=== PATIENT | female | born 1935 | race African-American/Black ===

== ENCOUNTER 2017-07-16 17:12 | Inpatient (IN) | payer OTHER ==
--- NOTE | 2017-07-16 18:06 | PDOC ---
History of Present Illness - General Chief Complaint: CVA/TIA Stated Complaint: R/O CVA Time Seen by Provider: 07/16/17 17:38 - History of Present Illness Initial Comments: 07/16/17 22:56 The patient is a 81 year old female, with a significant past medical history of DM, seizure disorder, lymphedema, Cardiomyopathy, HTN, Colon Cancer s/p resection in 2008, renal insufficiency, dementia not on any medications who presents to the emergency department with 4 days of L sided weakness and AMS. As per daughter, patient had an unwitnessed fall out of her bed and landed on the L side of her body, sustaining a L orbital laceration. Since then, the patient has been increasingly weak. Daughter states patient is ambulatory and verbal at baseline however since the fall the patient is unable to stand or sit on her own. Daughter mentions patients seizure history and states her AMS may be due to her absent seizures. Patient has not been on any medications for the past year. Patient was brought into the ED for further evaluation of her deteriorating in mental status since Friday. The patient's daughter reports that the patient and her made a decision 1+ year ago to no longer take medications or see the doctor. The patients daughter reports that she is the POA. When goals of care are discussed, the patient's daughter states that the patient would want "everything done." Allergies: NKA Past surgical history: Colon resection 2008 Social history: None PCP: Dr. Adilson Almanza NIH Stroke Scale - Last Known Well Date/Time & Onset Date Last Known Well: 07/12/17 Time Last Known Well: 00:00 - Initial Evaluation Level of consciousness: Alert Ask patient the month and their age: Both incorrect Ask patient to open & close eyes; make fist and let go: Both incorrect Best gaze (horizontal eye movement): Partial gaze palsy Visual field testing: No visual field loss Facial paresis (Show teeth/raise eyebrows/close eyes tight): Complete paralysis of one or both sides (Upper and lower face) Motor Function: Left Arm: No movement Motor Function: Right Arm: Normal (extends arm 90 (or 45) degrees for 10 seconds without drift Motor Function: Left Leg: No effort against gravity Motor Function: Right Leg: Normal (extends leg 30 degrees for 5 seconds without drift) Limb Ataxia: Untestable (Joint fused or limb amputated), explain: Sensory(Use pinprick test arms,legs,trunk,face/side to side): Mild to moderate decrease in sensation Best language (Describe picture, name items, read sentences): Severe aphasia Dysarthria (read several words): Near unintelligible or unable to speak Extinction and Inattention: Profound deysi-inattention or extinction to more than one modality - Total Score NIH Stroke Scale Score: 22 Past History - Past Medical History Allergies/Adverse Reactions: Allergies Allergy/AdvReac Type Severity Reaction Status Date / Time No Known Allergies Allergy Verified 07/16/17 17:32 Home Medications: Ambulatory Orders NK [No Known Home Medication] 07/16/17 CVA: No COPD: No DVT: No - Suicide/Smoking/Psychosocial Hx Smoking History: Never smoked Have you smoked in the past 12 months: No Information on smoking cessation initiated: No Hx Alcohol Use: No Drug/Substance Use Hx: No Substance Use Type: None Review of Systems - Review of Systems Comments:: 07/16/17 23:01 GENERAL/CONSTITUTIONAL: No fever or chills. +AMS HEAD, EYES, EARS, NOSE AND THROAT: No change in vision. No ear pain or discharge. No sore throat. CARDIOVASCULAR: No chest pain or shortness of breath. RESPIRATORY: No cough, wheezing, or hemoptysis. GASTROINTESTINAL: No nausea, vomiting, diarrhea or constipation. GENITOURINARY: No dysuria, frequency, or change in urination. MUSCULOSKELETAL: No joint or muscle swelling or pain. No neck or back pain. SKIN: No rash NEUROLOGIC: No headache, vertigo, loss of consciousness, or change in strength/ sensation. ENDOCRINE: No increased thirst. No abnormal weight change. HEMATOLOGIC/LYMPHATIC: No anemia, easy bleeding, or history of blood clots. ALLERGIC/IMMUNOLOGIC: No hives or skin allergy. *Physical Exam - Vital Signs Last Vital Signs Temp Pulse Resp BP Pulse Ox 93.9 F L 78 17 168/63 100 07/16/17 17:32 07/16/17 17:32 07/16/17 17:32 07/16/17 17:32 07/16/17 17:32 - Physical Exam Comments: 07/16/17 23:04 GENERAL: Elderly female with dried blood on her lateral brow, awake HEAD: 3 cm linear laceration over L lateral eyebrow (4 days old). +Ecchymosis to the inferior lateral orbital rim, L cheek, L mandible. EYES: PERRLA, sclera anicteric, conjunctiva clear ENT: Auricles normal inspection, hearing grossly normal, nares patent, oropharynx clear without exudates. +Dry mucous membranes. NECK: Normal ROM, supple, no lymphadenopathy, JVD, or masses LUNGS: Breath sounds equal, clear to auscultation bilaterally. No wheezes, and no crackles HEART: Regular rate and rhythm, normal S1 and S2, no murmurs, rubs or gallops ABDOMEN: Soft, nontender, normoactive bowel sounds. No guarding, no rebound. No masses EXTREMITIES: + b/l symmetric non pitting LE edema NEUROLOGICAL: +L hemineglect +L facial droop. +LUE flaccid. +1/5 strength in LLE. +aphasia ED Treatment Course - LABORATORY CBC & Chemistry Diagram: 07/19/17 04:45 07/19/17 04:45 Medical Decision Making - Critical Care Time Total Critical Care Time (minutes): 60 Critical Care Statement: The care of this patient involved high complexity decision making to prevent further life threatening deterioration of the patient 's condition and/or to evaluate & treat vital organ system(s) failure or risk of failure. - Medical Decision Making 07/16/17 18:18 81-year-old female with multiple medical problems but not on any medications presents with 4 days of left-sided weakness and change in mental status. Vitals are remarkable for hypertension to the 160s systolic and hypothermia to 93. On exam the patient has left deysi-neglect, left-sided facial droop, a flaccid left upper extremity, and 1 out of 5 strength in her left lower extremity. The patient is also aphasic. I am highly concerned for a CVA that is ischemic versus hemorrhagic versus a subdural hematoma given frequent falls per the patient's daughter and main powerhouse tender. Her hypothermia may be a consequence of acute intracranial pathology however will consider infection and check a UA/ CXR. Patient will also need a trauma workup given the frequent falls and the noted ecchymosis on the left face and the left nasal bridge. 07/16/17 20:28 Pt hypernatremic to 170s with multiple strokes on CTH. Pt accepted to ICU for further management *DC/Admit/Observation/Transfer Diagnosis at time of Disposition: CVA (cerebral vascular accident), ARF (acute renal failure), Hypernatremia - Discharge Dispostion Condition at time of disposition: Critical - Referrals - Patient Instructions - Post Discharge Activity
[2017-07-16] MEDS ORDERED: SODIUM CHLORIDE 1,000 ML IV SCH (18:15)
[2017-07-16 18:18] LABS: BASOPHIL 0.8 % (0-2.0); EOSINOPHIL 0.6 % (0-4.5); MCH 21.2 pg (25.7-33.7); MCHC 29.1 g/dl (32.0-36.0); MEAN CELL VOLUME 72.8 fl (80-96); MEAN PLT VOLUME 9.4 fl (7.5-11.1); NEUTROPHILS 84.9 % (42.8-82.8); PLATELET COUNT 252 K/MM3 (134-434); RDW 19.6 % (11.6-15.6); WHITE BLOOD COUNT 9.4 K/mm3 (4.0-10.0)
[2017-07-16 18:33] LABS: INR 1.29 (0.82-1.09); PROTHROMBIN TIME (PATIENT) 14.6 SEC (9.98-11.88)
[2017-07-16 18:53] LABS: MAGNESIUM 3.4 mg/dL (1.8-2.4)
[2017-07-16 18:54] LABS: ALBUMIN 2.9 g/dl (3.4-5.0); ANION GAP 11 (8-16); BILIRUBIN,TOTAL 0.3 mg/dL (0.2-1.0); CALCIUM 8.2 mg/dL (8.5-10.1); CHOLESTEROL 141 mg/dL (50-200); CO2 18 mmol/L (21-32); CREATININE 4.9 mg/dL (0.55-1.02); GLUCOSE,RANDOM 97 mg/dL (74-106); SGOT/AST 48 U/L (15-37); SGPT/ALT 22 U/L (12-78); TOT PROT 9.2 g/dl (6.4-8.2); TROPONIN I 0.07 ng/ml (0.00-0.05)
[2017-07-16 18:55] LABS: ALK PHOS 118 U/L (45-117); CPK 939 IU/L (26-192); TROPONIN I 0.07 ng/ml (0.00-0.05)
[2017-07-16 19:07] LABS: ANISOCYTOSIS 1+; HYPOCHROMIA 3+; MICROCYTOSIS 1+; OVALOCYTE 1+; TARGET CELLS 1+
[2017-07-16 21:07] LABS: URINE APPEARANCE TURBID; URINE BILIRUBIN NEGATIVE (NEGATIVE); URINE BLOOD 2+ (NEGATIVE); URINE COLOR DKYELLOW; URINE GLUCOSE (UA) NEGATIVE (NEGATIVE); URINE KETONE TRACE (NEGATIVE); URINE NITRITE NEGATIVE (NEGATIVE); URINE UROBILINOGEN NEGATIVE mg/dL (0.2-1.0)
[2017-07-16 21:13] LABS: URINE PROTEIN 1+ (NEGATIVE)
[2017-07-16 21:16] LABS: URINE BACTERIA RARE /hpf (NONE SEEN); URINE MUCUS RARE; URINE RBC 78 /hpf (0-3); URINE WBC 285 /hpf (3-5); YEAST MANY
--- NOTE | 2017-07-16 21:52 | PDOC ---
*Physical Exam - Vital Signs Last Vital Signs Temp Pulse Resp BP Pulse Ox 94.6 F L 87 20 152/80 100 07/16/17 18:49 07/16/17 19:49 07/16/17 19:49 07/16/17 19:49 07/16/17 19:49 ED Treatment Course - LABORATORY CBC & Chemistry Diagram: 07/16/17 18:10 07/16/17 18:10 - ADDITIONAL ORDERS Additional order review: Laboratory Results 07/16/17 07/16/17 07/16/17 21:00 18:10 18:10 PT with INR INR Sodium Potassium Chloride Carbon Dioxide Anion Gap BUN Creatinine Creat Clearance w eGFR Random Glucose Calcium Magnesium 3.4 H Total Bilirubin AST ALT Alkaline Phosphatase Creatine Kinase Creatine Kinase Index CK-MB (CK-2) Troponin I 0.07 H Total Protein Albumin Triglycerides Cholesterol Total LDL Cholesterol HDL Cholesterol Urine Color Dkyellow Urine Appearance Turbid Urine pH 5.0 Ur Specific Armstrong 1.017 Urine Protein 1+ H Urine Glucose (UA) Negative Urine Ketones Trace H Urine Blood 2+ H Urine Nitrite Negative Urine Bilirubin Negative Urine Urobilinogen Negative Ur Epithelial Cells Few Urine Bacteria Rare Urine Mucus Rare Urine Yeast Many Blood Type B NEGATIVE Antibody Screen Negative 07/16/17 07/16/17 18:10 18:10 PT with INR 14.60 H INR 1.29 H Sodium 172 H* Potassium 5.3 H Chloride 143 H Carbon Dioxide 18 L Anion Gap 11 BUN 79 H Creatinine 4.9 H Creat Clearance w eGFR 8.48 Random Glucose 97 Calcium 8.2 L Magnesium Total Bilirubin 0.3 AST 48 H ALT 22 Alkaline Phosphatase 118 H Creatine Kinase 939 H Creatine Kinase Index 1.0 CK-MB (CK-2) 9.860 H Troponin I 0.07 H Total Protein 9.2 H Albumin 2.9 L Triglycerides 129 Cholesterol 141 Total LDL Cholesterol 84 HDL Cholesterol 40 Urine Color Urine Appearance Urine pH Ur Specific Armstrong Urine Protein Urine Glucose (UA) Urine Ketones Urine Blood Urine Nitrite Urine Bilirubin Urine Urobilinogen Ur Epithelial Cells Urine Bacteria Urine Mucus Urine Yeast Blood Type Antibody Screen 07/16/17 18:10 RBC 3.15 L MCV 72.8 L MCHC 29.1 L RDW 19.6 H MPV 9.4 Neutrophils % 84.9 H Lymphocytes % 8.1 Monocytes % 5.6 Eosinophils % 0.6 Basophils % 0.8 Medical Decision Making - Medical Decision Making Patient signed out by Dr. Hsu. Labs returned significant for severe hypernatremia at 172 and acute renal failure with a HgB of 6.7. Orderd one pack of RBCs. 07/16/17 22:42 Spoke with the ICU SUPERVISOR [employer] at 22:45 and he was OK with admission. Spoke with Dr. salgado at 22:55 and she was OK with admission to the ICU. Spoke with Dr. Hanson covering for Ashutosh at 23:02 and he didn't see any issue with using hypotonic fluids if needed. He will see the patient in the AM. We changed fluids from D5 to LR because of fear of overcorection since this hypernatremia is primarily volume driven. 07/16/17 23:[address] Alberto at 23:37 and he recommended switching from LR to NS and bolus two liters/ 2 hours, pulmonary status permitting then continuing on 150cc/ hr. He was not concerned about acute overcorrection of her hypernatremia. Will put in one liter and recheck at [facility]. 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
[2017-07-16] MEDS ORDERED: SODIUM CHLORIDE 0.45% 1,000 ML IV SCH (22:00)
[2017-07-16] MEDS ORDERED: DEXTROSE 5%-WATER - 1,000 ML IV SCH (22:15)
[2017-07-16] MEDS ORDERED: LACTATED RINGERS SOLUTION 1,000 ML/1,000 ML INFUS.BAG IV SCH (23:00)
[2017-07-16] MEDS ORDERED: SODIUM CHLORIDE 0.9% 500 ML INFUS.BAG IV ONE (23:33)
--- NOTE | 2017-07-16 23:34 | CONSULT ---
Consult Consult Specialty:: Pulm/CCM Reason for Consultation:: hyperNa, ARF - History of Present Illness Chief Complaint: AMS History of Present Illness: This is a 81 yo woman history MMP: DM, dementia, prior CVA/TIA, seizure d/o, CKD , colon Ca s/p resection (2008) and now multiple recent falls who developed new left side weakness and AMS ~3days prior to admission. Per daughter patient was verbal/ambulatory prior to this last fall when she struck the left side of her head and has been bed bound since. On day of admission the patient's daughter noted left sided facial droop and aphasia. EMS was activated later in the day. In ED hypothermic 93d, labs notable for metabolic disarray: Na 172, Cl: 142, SCr 4.9. CK: 939. CT head and face done: showing multiple infarct of varying age. Patient was not a TPA candidate due to last known normal time >3hrs. Renal and Neurology consulted. - History Source History Provided By: Medical Record Limitations to Obtaining History: Clinical Condition - Past Medical History LOCAL SUPERINTENDENT: Yes: Dementia, Seizure, TIA Cardio/Vascular: Yes: HTN Gastrointestinal: Yes: Cancer (Colon Ca s/p resection (2008)) Renal/: Yes: Renal Inusuff Endocrine: Yes: Diabetes Mellitus - Alcohol/Substance Use Hx Alcohol Use: No - Smoking History Smoking history: Never smoked Have you smoked in the past 12 months: No Home Medications - Allergies Allergies/Adverse Reactions: Allergies Allergy/AdvReac Type Severity Reaction Status Date / Time No Known Allergies Allergy Verified 07/16/17 17:32 - Home Medications Home Medications: Ambulatory Orders NK [No Known Home Medication] 07/16/17 Family Disease History - Family Disease History Family History: Unable to Obtain Review of Systems Unable to obtain ROS, reason: AMS Physical Exam Vital Signs: Vital Signs Temperature 94.6 F L 07/16/17 18:49 Pulse Rate 87 07/16/17 19:49 Respiratory Rate 20 07/16/17 19:49 Blood Pressure 152/80 07/16/17 19:49 O2 Sat by Pulse Oximetry (%) 100 07/16/17 19:49 Constitutional: Yes: Cachectic, Thin Eyes: Yes: PERRL HENT: Yes: Drooling Cardiovascular: Yes: Regular Rate and Rhythm, S1, S2 Respiratory: Yes: CTA Bilaterally Gastrointestinal: Yes: Normal Bowel Sounds, Soft Edema: Yes Edema: LLE: 2+, RLE: 2+ Neurological: Yes: Aphasia, Facial Droop (left side) ...Motor Strength: LUE (flacid), LLE (1/5) Labs: CBC, BMP 07/16/17 18:10 07/16/17 18:10 Imaging - Results Chest X-ray: Report Reviewed, Image Reviewed Cat Scan: Report Reviewed, Image Reviewed (CT head: nonhemorrhagic 2x0.5 R basal ganglia infarct, acute vs sub acute. 2.7x1.5cm L parietal low attenuation focus c/f encephalomalacia or subacute cortical infarct. No mass effect. 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 (3) ARF (acute renal failure) Code(s): N17.9 - ACUTE KIDNEY FAILURE, UNSPECIFIED Qualifiers: Acute renal failure type: unspecified Qualified Code(s): N17.9 - Acute kidney failure, unspecified (4) Dehydration Code(s): E86.0 - DEHYDRATION Assessment/Plan a/p: Frail 81 yo woman w/ MMP: CVA, sz d/o, DM CKD who presented with ~3days of progressive weakness and aphasia after a fall with new left sided weakness likely r/t acute vs subacute CVA c/c/b profound metabolic disarray with hypovolemic hypernatremia r/t severe dehydration likely 2/2 decreased access to water c/b AKF and anemia -cont fluid resuscitation for hypovolemic, will use NS (relatively hypotonic) -free water deficit 5.6L, slow correction with goal 162 in next 24hrs -frequent BMPs -renal lytes, Uosmo -medical management hyperkalemia -renal consulted -renal dose all medication -neurology following -transfuse for Hgb >7.0 -sebastian hugger for hypothermia -will likely need feeding tube, will be cautious for refeeding syndrome -DVT prophylaxis: SCD given questionable CVA/bleed -GI prophylaxis given ARF -GOC: per daughter patient had stopped taking meds and seeing MDs ~1yr ago. Nash PATEL Pulm/CCM CCT: 35m
[2017-07-17] MEDS: FAMOTIDINE 20 MG/50 ML IVPB 20 MG/50 ML MG IVPB SCH (00:25)
[2017-07-17 01:44] LABS: ALBUMIN 2.8 g/dl (3.4-5.0); ANION GAP 11 (8-16); CALCIUM 8.4 mg/dL (8.5-10.1); CO2 20 mmol/L (21-32); CREATININE 5.5 mg/dL (0.55-1.02); GLUCOSE,RANDOM 77 mg/dL (74-106); SGOT/AST 43 U/L (15-37); SGPT/ALT 22 U/L (12-78)
[2017-07-17 01:45] LABS: ALK PHOS 111 U/L (45-117); BILIRUBIN,TOTAL 0.3 mg/dL (0.2-1.0); TOT PROT 8.9 g/dl (6.4-8.2)
[2017-07-17] MEDS ORDERED: SODIUM CHLORIDE 0.45% 1,000 ML IV SCH (02:15)
[2017-07-17 02:34] VITALS: BMI 17.4
[2017-07-17 07:09] LABS: MCH 23.6 pg (25.7-33.7); MCHC 31.1 g/dl (32.0-36.0); MEAN CELL VOLUME 75.7 fl (80-96); MEAN PLT VOLUME 9.2 fl (7.5-11.1); PLATELET COUNT 203 K/MM3 (134-434); RDW 20.8 % (11.6-15.6); WHITE BLOOD COUNT 10.5 K/mm3 (4.0-10.0)
[2017-07-17 07:12] LABS: ANION GAP 11 (8-16); CALCIUM 7.9 mg/dL (8.5-10.1); CO2 19 mmol/L (21-32); GLUCOSE,RANDOM 75 mg/dL (74-106); MAGNESIUM 3.1 mg/dL (1.8-2.4)
[2017-07-17 07:14] LABS: CREATININE 5.5 mg/dL (0.55-1.02); PHOSPHOROUS 6.8 mg/dL (2.5-4.9)
--- NOTE | 2017-07-17 09:33 | CON.NEURO ---
Consult Consult Specialty:: Neurology Referred by:: Dr. Aditi Sanchez Reason for Consultation:: Altered mental status, stroke, undefined brain lesion - History of Present Illness Chief Complaint: Fall, altered mental status History of Present Illness: 81 year old woman with prior history of DMII, dementia, prior stroke, epilepsy, CKD, colon Ca s/p resection (2008) and now multiple recent falls who developed new left side weakness and AMS ~3days prior to admission. As per house staff the acute weakness occurred 3 days prior to admission and then the patient became progressively non-functional, lethargic and hasn't been taking adequate food or drink. - History Source History Provided By: Medical Record Limitations to Obtaining History: Dementia - Past Medical History STEP DOWN SPECIALIST: Yes: CVA, Dementia, Seizure, TIA Cardio/Vascular: Yes: HTN Gastrointestinal: Yes: Cancer (Colon Ca s/p resection (2008)) Renal/: Yes: Renal Inusuff Endocrine: Yes: Diabetes Mellitus - Alcohol/Substance Use Hx Alcohol Use: No - Smoking History Smoking history: Never smoked Have you smoked in the past 12 months: No - Social History Usual Living Arrangement: With Child ADL: Family Assistance Home Medications - Allergies Allergies/Adverse Reactions: Allergies Allergy/AdvReac Type Severity Reaction Status Date / Time No Known Allergies Allergy Verified 07/16/17 17:32 - Home Medications Home Medications: Ambulatory Orders NK [No Known Home Medication] 07/16/17 Physical Exam-Neuro Vital Signs: Vital Signs Temperature 97.2 F L 07/17/17 08:00 Pulse Rate 76 07/17/17 08:00 Respiratory Rate 19 07/17/17 09:00 Blood Pressure 159/53 07/17/17 08:00 O2 Sat by Pulse Oximetry (%) 100 07/17/17 09:00 Constitutional: Yes: Thin, Other (lying in hospital bed wtih O2 cannula in place , head positioned slightly to the right, mouth open, eyes closed, with spontaneous movements at times) Labs: CBC, BMP 07/17/17 06:05 07/17/17 06:05 INR, PTT INR 1.29 (0.82-1.09) H 07/16/17 18:10 - Neuro Exam Level Of Consciousness: Yes: Stuporous Eyes: Yes: [place]OR Speech: Garbled Cranial Nerves II-XII Intact: No DTR's: 0 Left Achilles, 0 Right Achilles, 2+ Left Bicep, 2+ Right Bicep, 2+ Left Tricep, 2+ Right Tricep Babinski: Present (on the left side) Response to light touch: Abnormal (no grimace to noxious stimuli on the left side) NIH Stroke Scale - Last Known Well Date/Time & Onset Date Last Known Well: 07/12/17 - Initial Evaluation Level of consciousness: Not alert, but arousable with minimal stimulation Ask patient the month and their age: Both incorrect Ask patient to open & close eyes; make fist and let go: Obeys one correctly Best gaze (horizontal eye movement): Normal Visual field testing: Partial hemianopia Facial paresis (Show teeth/raise eyebrows/close eyes tight): Minor paralysis ( flattened nasolabial fold, asymmetry on smiling) Motor Function: Left Arm: No effort against gravity Motor Function: Right Arm: Some effort against gravity Motor Function: Left Leg: No movement Motor Function: Right Leg: Some effort against gravity Limb Ataxia: No ataxia Sensory(Use pinprick test arms,legs,trunk,face/side to side): Severe to total sensory loss Best language (Describe picture, name items, read sentences): Mild to moderate aphasia Dysarthria (read several words): Near unintelligible or unable to speak Extinction and Inattention: Inattention or extinction bilaterally to one of the sensory modalities - Total Score NIH Stroke Scale Score: 23 Imaging - Results Cat Scan: Report Reviewed, Image Reviewed (subacute right basal ganglia infarction, old left pontine infarction, left parietal low attenuation focus of undefined nature with some hyperdensity along anterior border. There is a small chronic subdural without mass effect (vs hygroma) on Head CT. 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 Since that time, she has not been able to care for herself, resulting in poor po intake and progression of her symptoms which is likely metabolic in nature. The nature of the lesion in the left parietal lobe is not clear, and when possible, MRI should be obtained to better understand what this represents whether it is encephalomalacea from an old insult or whether it represents a neoplasm. Unfortunately, contrast cannot be given due to her renal status, but the MRI should be able to at least help us distinguish some of these. We need to better understand her history of epilepsy, and whether she has had seizures recently. As per history obtained by another MD, the patient and made the decision to not take medications, which if she had epilepsy, one would think, would result in frequent seizures. If she and her family are willing, she should be on Aspirin, Statin, and possibly and anticonvulsant, but I'd recommend discussing this with the family. Her PCP if available over the next few days should also be able to provide additional medical insight. Thanks for consulting us.
--- NOTE | 2017-07-17 09:41 | CON.NEP ---
Consult Consult Specialty:: Nephrology Referred by:: ED Reason for Consultation:: Hypernatremia, Acute Renal Failure - History of Present Illness Chief Complaint: AMS History of Present Illness: This is a 81 year old woman with PMhx of DM, seizure disorder, lymphedema, Cardiomyopathy, HTN, Colon Cancer s/p resection in 2008, renal insufficiency, dementia who presented with AMS and left sided weakness with Hypernatremia and Acute Renal failure. Pt wass seen and examined in the ICU but not able to provide history. 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 Daughter reports that the patient has not had medical follow up in 1 year and has stopped taking all her meds. Denies any NSAID use. No po intake for the past 4 days as per daughter. Has poor intake for the past few months. Pt is s/p fall. Has left sided weakness. 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: Yes: CVA, Dementia, Seizure, TIA Cardio/Vascular: Yes: HTN Gastrointestinal: Yes: Cancer (Colon Ca s/p resection (2008)) Renal/: Yes: Renal Inusuff Endocrine: Yes: Diabetes Mellitus - Alcohol/Substance Use Hx Alcohol Use: No - Smoking History Smoking history: Never smoked Have you smoked in the past 12 months: No - Social History Usual Living Arrangement: With Child ADL: Family Assistance Home Medications - Allergies Allergies/Adverse Reactions: Allergies Allergy/AdvReac Type Severity Reaction Status Date / Time No Known Allergies Allergy Verified 07/16/17 17:32 - Home Medications Home Medications: Ambulatory Orders NK [No Known Home Medication] 07/16/17 Review of Systems Unable to obtain ROS, reason: pt not verbal Nephrology Consult - Height Height: 5 ft 2 in - Weight Weight: 43.318 kg - BMI Body Mass Index (BMI): 17.4 - Lab Results CBC,BMP: CBC, BMP 07/17/17 06:05 07/17/17 06:05 Anion Gap: Anion Gap Anion Gap 11 (8-16) 07/17/17 06:05 - Imaging Chest X-ray: Report Reviewed Cat Scan: Report Reviewed - Physical Examination Vital Signs: Vital Signs Temperature 97.2 F L 07/17/17 08:00 Pulse Rate 76 07/17/17 08:00 Respiratory Rate 19 07/17/17 09:00 Blood Pressure 159/53 07/17/17 08:00 O2 Sat by Pulse Oximetry (%) 100 07/17/17 09:00 Constitutional: Yes: No Distress, Calm, Cachectic, Other (Dry MM) Neck: Yes: Supple Cardiovascular: Yes: Regular Rate and Rhythm, S1, S2. No: Murmur, Rub Respiratory: Yes: Regular, CTA Bilaterally Gastrointestinal: Yes: Normal Bowel Sounds, Soft. No: Tenderness Renal/: Yes: Anuria, CVA Tenderness - Left, CVA Tenderness - Right, Rowley Present. No: Bladder Distention Extremities: No: Cold, Cool, Cyanosis Edema: No Neurological: Yes: Alert, Oriented Problem List - Problems (1) ARF (acute renal failure) Code(s): N17.9 - ACUTE KIDNEY FAILURE, UNSPECIFIED Qualifiers: Acute renal failure type: unspecified Qualified Code(s): N17.9 - Acute kidney failure, unspecified (2) CVA (cerebral vascular accident) Code(s): I63.9 - CEREBRAL INFARCTION, UNSPECIFIED Qualifiers: CVA mechanism: occlusion Precerebral and cerebral artery: basilar artery Qualified Code(s): I63.22 - Cerebral infarction due to unspecified occlusion or stenosis of basilar artery (3) Dehydration Code(s): E86.0 - DEHYDRATION (4) Hypernatremia Code(s): E87.0 - HYPEROSMOLALITY AND HYPERNATREMIA Assessment/Plan 81 year old woman with PMhx of DM, seizure disorder, lymphedema, Cardiomyopathy , HTN, Colon Cancer s/p resection in 2008, renal insufficiency (Cr 1.85 in 2012) , dementia who presented with AMS and left sided weakness with Hypernatremia and Acute Renal failure. #Acute on chronic renal insufficiency Etiology of DARLENE unclear, volume depletion vs. progressive CKD ? 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 unlikely DI but would need to access urine OSM continue isotonic saline at this time Ternd Labs Q12h #Hyperkalemia Mild, no acute intervention needed (no kayexalate, Insulin needed at this time) continue isotonic saline #AMS/CVA Supportive Care permissive hypertension #Metabolic Acidosis Trend serum Bicarb for now Thank you Will follow up Florentino Alberto DO
[2017-07-17] MEDS ORDERED: SODIUM CHLORIDE 1,000 ML IV SCH (10:30)
[2017-07-17 10:54] LABS: URINE LEUK ESTERASE 3+ (NEGATIVE)
--- NOTE | 2017-07-17 12:31 | HP ---
PCP: Adilson Almanza CHIEF COMPLAINT: Altered mental status HISTORY OF PRESENT ILLNESS: This is an 81-year-old woman who was brought in to the ER yesterday because of altered mental status. The patient is unable to provide a history which is obtained from the chart. Her daughter reported that she has had a change in mental status and left-sided weakness for the last 3 days. She had fallen out of bed onto her left side 3 days ago. Since then, she has been unable to sit or stand. Prior to the fall, she had been ambulatory and verbal. Since the fall, she has had left-sided weakness, left facial droop and worsening confusion. According to her daughter, over a year ago, the patient and her decided to stop all medications and not seek medical care. However, the daughter stated that the patient would want everything done. Head CT showed a 2 x 0.5 cm acute/subacute right basal ganglia infarct, a 2.7 x 1.5 cm left parietal low-attenuation focus possible encephalomalacia or subacute cortical infarct, a small chronic left pontine infarct, a very small chronic left frontal/parietal/temporal subdural hematoma. Her sodium was 172. She was admitted to the ICU overnight. PAST MEDICAL HISTORY: Type 2 DM Seizure disorder Lymphedema HTN Cardiomyopathy Colon cancer PAST SURGICAL HISTORY: Colon resection Allergies No Known Allergies Allergy (Verified 07/16/17 17:32) Home Medications Medication Instructions Recorded NK [No Known Home Medication] 07/16/17 Social History: Smoking: Never smoked Alcohol: None Drugs: None Recent Travel: No Family History: Unobtainable REVIEW OF SYSTEMS Unobtainable PHYSICAL EXAMINATION Vital Signs - 24 hr 07/16/17 07/16/17 07/16/17 17:32 18:49 19:49 Temperature 93.9 F L 94.6 F L Pulse Rate 78 Pulse Rate [ 78 87 Apical] Respiratory 17 18 20 Rate Blood Pressure 168/63 Blood Pressure 152/51 152/80 [Left Arm] O2 Sat by Pulse 100 100 100 Oximetry (%) 07/16/17 07/17/17 07/17/17 22:00 01:00 01:15 Temperature 95.4 F L 97.0 F L 97.0 F L Pulse Rate Pulse Rate [ 71 69 Apical] Respiratory 20 20 Rate Blood Pressure Blood Pressure 161/85 160/79 [Left Arm] O2 Sat by Pulse 95 96 Oximetry (%) 07/17/17 07/17/17 07/17/17 02:00 02:22 03:01 Temperature 96.2 F L 96.2 F L 96.4 F L Pulse Rate 76 76 74 Pulse Rate [ Apical] Respiratory 19 19 17 Rate Blood Pressure 153/56 153/56 153/56 Blood Pressure [Left Arm] O2 Sat by Pulse 100 Oximetry (%) 07/17/17 07/17/17 07/17/17 05:00 05:01 07:00 Temperature 97.3 F L 97.8 F Pulse Rate 74 72 Pulse Rate [ Apical] Respiratory 18 18 19 Rate Blood Pressure 136/47 153/49 Blood Pressure [Left Arm] O2 Sat by Pulse 100 Oximetry (%) 07/17/17 07/17/17 08:00 09:00 Temperature 97.2 F L Pulse Rate 76 Pulse Rate [ Apical] Respiratory 19 19 Rate Blood Pressure 159/53 Blood Pressure [Left Arm] O2 Sat by Pulse 100 Oximetry (%) GENERAL: Comfortable. Cachectic. Opens eyes to painful stimuli. Non-verbal. HEAD: Healing laceration of left side of face, ecchymosis of left side of face. EYES: Pupils equal, round and reactive to light, sclerae anicteric, conjunctivae clear. EARS, NOSE, THROAT: Ears normal, nares patent, oropharynx not able to be examined. NECK: Supple without lymphadenopathy, JVD, or masses. LUNGS: Breath sounds equal, clear to auscultation bilaterally. No wheezes, and no crackles. No accessory muscle use. HEART: Regular rate and rhythm, normal S1 and S2 without murmur, rub or gallop. ABDOMEN: Soft, not distended, normoactive bowel sounds. No hepatomegaly or splenomegaly. UPPER EXTREMITIES: Right arm contracted. LOWER EXTREMITIES: 2+ pulses, warm, well-perfused. 2+ edema with chronic changes of both legs. NEUROLOGICAL: Does not follow commands. Biceps and patella reflexes 2+. Plantar reflex equivocal on right and upgoing on left. SKIN: Warm, dry, poor turgor, no rashes or lesions noted, normal capillary refill. Laboratory Results - last 24 hr 07/16/17 07/16/17 07/16/17 18:10 18:10 18:10 WBC 9.4 RBC 3.15 L Hgb 6.7 L* Hct 23.0 L MCV 72.8 L MCH 21.2 L MCHC 29.1 L RDW 19.6 H Plt Count 252 MPV 9.4 Neutrophils % 84.9 H Lymphocytes % 8.1 Monocytes % 5.6 Eosinophils % 0.6 Basophils % 0.8 Hypochromia 3+ Anisocytosis 1+ Microcytosis 1+ Target Cells 1+ Ovalocytes 1+ PT with INR 14.60 H INR 1.29 H Sodium 172 H* Potassium 5.3 H Chloride 143 H Carbon Dioxide 18 L Anion Gap 11 BUN 79 H Creatinine 4.9 H Creat Clearance w eGFR 8.48 Random Glucose 97 Lactic Acid Calcium 8.2 L Phosphorus Magnesium Total Bilirubin 0.3 AST 48 H ALT 22 Alkaline Phosphatase 118 H Creatine Kinase 939 H Creatine Kinase Index 1.0 CK-MB (CK-2) 9.860 H Troponin I 0.07 H Total Protein 9.2 H Albumin 2.9 L Triglycerides 129 Cholesterol 141 Total LDL Cholesterol 84 HDL Cholesterol 40 TSH Urine Color Urine Appearance Urine pH Ur Specific [place] Urine Protein Urine Glucose (UA) Urine Ketones Urine Blood Urine Nitrite Urine Bilirubin Urine Urobilinogen Ur Leukocyte Esterase Ur Epithelial Cells Urine Bacteria Urine Mucus Urine Yeast Blood Type Antibody Screen Crossmatch 07/16/17 07/16/17 07/16/17 18:10 18:10 21:00 WBC RBC Hgb Hct MCV MCH MCHC RDW Plt Count MPV Neutrophils % Lymphocytes % Monocytes % Eosinophils % Basophils % Hypochromia Anisocytosis Microcytosis Target Cells Ovalocytes PT with INR INR Sodium Potassium Chloride Carbon Dioxide Anion Gap BUN Creatinine Creat Clearance w eGFR Random Glucose Lactic Acid Calcium Phosphorus Magnesium 3.4 H Total Bilirubin AST ALT Alkaline Phosphatase Creatine Kinase Creatine Kinase Index CK-MB (CK-2) Troponin I 0.07 H Total Protein Albumin Triglycerides Cholesterol Total LDL Cholesterol HDL Cholesterol TSH Urine Color Dkyellow Urine Appearance Turbid Urine pH 5.0 Ur Specific [place] 1.017 Urine Protein 1+ H Urine Glucose (UA) Negative Urine Ketones Trace H Urine Blood 2+ H Urine Nitrite Negative Urine Bilirubin Negative Urine Urobilinogen Negative Ur Leukocyte Esterase 3+ H Ur Epithelial Cells Few Urine Bacteria Rare Urine Mucus Rare Urine Yeast Many Blood Type B NEGATIVE Antibody Screen Negative Crossmatch See Detail 07/17/17 07/17/17 07/17/17 01:00 01:00 01:00 WBC RBC Hgb Hct MCV MCH MCHC RDW Plt Count MPV Neutrophils % Lymphocytes % Monocytes % Eosinophils % Basophils % Hypochromia Anisocytosis Microcytosis Target Cells Ovalocytes PT with INR INR Sodium 175 H* Potassium 5.3 H Chloride 144 H Carbon Dioxide 20 L Anion Gap 11 BUN 89 H Creatinine 5.5 H Creat Clearance w eGFR 7.42 Random Glucose 77 D Lactic Acid 1.4 Calcium 8.4 L Phosphorus Magnesium Total Bilirubin 0.3 AST 43 H ALT 22 Alkaline Phosphatase 111 Creatine Kinase Creatine Kinase Index CK-MB (CK-2) Troponin I Total Protein 8.9 H Albumin 2.8 L Triglycerides Cholesterol Total LDL Cholesterol HDL Cholesterol TSH 1.08 Urine Color Urine Appearance Urine pH Ur Specific [place] Urine Protein Urine Glucose (UA) Urine Ketones Urine Blood Urine Nitrite Urine Bilirubin Urine Urobilinogen Ur Leukocyte Esterase Ur Epithelial Cells Urine Bacteria Urine Mucus Urine Yeast Blood Type Antibody Screen Crossmatch 07/17/17 07/17/17 06:05 06:05 WBC 10.5 H RBC 3.23 L Hgb 7.6 L D Hct 24.4 L MCV 75.7 L MCH 23.6 L MCHC 31.1 L RDW 20.8 H Plt Count 203 MPV 9.2 Neutrophils % Lymphocytes % Monocytes % Eosinophils % Basophils % Hypochromia Anisocytosis Microcytosis Target Cells Ovalocytes PT with INR INR Sodium 173 H* Potassium 5.4 H Chloride 143 H Carbon Dioxide 19 L Anion Gap 11 BUN 88 H Creatinine 5.5 H Creat Clearance w eGFR Random Glucose 75 Lactic Acid Calcium 7.9 L Phosphorus 6.8 H Magnesium 3.1 H Total Bilirubin AST ALT Alkaline Phosphatase Creatine Kinase Creatine Kinase Index CK-MB (CK-2) Troponin I Total Protein Albumin Triglycerides Cholesterol Total LDL Cholesterol HDL Cholesterol TSH Urine Color Urine Appearance Urine pH Ur Specific [place] Urine Protein Urine Glucose (UA) Urine Ketones Urine Blood Urine Nitrite Urine Bilirubin Urine Urobilinogen Ur Leukocyte Esterase Ur Epithelial Cells Urine Bacteria Urine Mucus Urine Yeast Blood Type Antibody Screen Crossmatch ASSESSMENT/PLAN: This is an 81-year-old woman with a history of type 2 DM, seizure disorder, lymphedema, HTN, cardiomyopathy, colon cancer, colon resection, dementia who presented to the ER on 07/16 with altered mental status and left-sided weakness since a fall on 07/14. 1. Hypernatremia - Secondary to volume depletion - Nephrology consult appreciated - Improving with IV NS - Monitor electrolytes - Urine and serum osmolality pending 2. Hyperkalemia - Continue IV fluid - Monitor electrolytes 3. Acute kidney injury on CKD, stage unknown - Last known creatinine at this time is 1.85 from 2013 - Continue IV fluid - Monitor BUN, creatinine - Renal US 4. Acute right basal ganglia ischemic CVA - Neurology consult appreciated - Recommend starting aspirin, Lipitor if patient is able and patient/family are agreeable to treatment - CT also showed left parietal encephalomalacia vs subacute infarct vs mass - MRI of brain when stable - Carotid dopplers - Echocardiogram - Lipid profile 5. Encephalopathy, liekly acute metabolic secondary to electrolyte abnormalities , volume depletion - Monitor mental status with correction of electrolytes, volume depletion - Possibly secondary to dementia, seizures, metastatic brain disease 6. Small left subdural hematoma 7. Hypothermia - Improved 8. Anemia, microcytic - Likely chronic but baseline hemoglobin not known - Transfused 1 unit PRBCs - Likely secondary to iron deficiency from colon cancer - Check iron studies, stool occult blood 9. Rhabdomyolysis - IV fluid - Monitor CK 10. Seizure disorder with possible recent seizures - Patient decided to stop all medications over a year ago 11. HTN 12. Type 2 DM - Fingersticks with Novolog sliding scale - Check HgbA1c 13. Cardiomyopathy 14. Dementia 15. Lymphedema of both legs 16. Colon cancer, history of colon resection 17. Malnutrition - Unable to take PO - Continue IV fluid for now 18. DVT prophylaxis - SCDs - No heparin/Lovenox secondary to anemia and possible GI blood loss 19. Stress ulcer prophylaxis - On Pepcid IV
[2017-07-17] MEDS ORDERED: HEMOQUE TEST 1 EACH EACH ONE (12:32)
[2017-07-17 12:37] LABS: OSMOLALITY,SERUM 395 mosm/kg (278-305)
--- NOTE | 2017-07-17 12:39 | PN ---
Physical Exam: SUBJECTIVE: Patient seen and examined at bedside. No new complaints. No overnight events. Denies CP,KAPLAN, soB,abdominal pain, N/V. OBJECTIVE: Vital Signs Period Temp Pulse Resp BP Sys/Garcia Pulse Ox Last 24 Hr 93.9 F-97.8 F 69-87 17-33 136-179/47-85 95-100 GENERAL: baseline dementia, NAD HEAD: 8cm laceration left orbit. EYES: PERRLA. ENT: moist mucous membranes. NECK: supple, no jvd LUNGS: CTAB, no wheezes, no crackles, no accessory muscle use. HEART: RRR, S1, S2 without murmur, rub or gallop. ABDOMEN: Soft, NT/ND, normoactive bowel sounds, no guarding, no rebound, no hepatosplenomegaly, no masses. EXTREMITIES: 2+ pulses, warm, well-perfused, no edema. NEUROLOGICAL: left sided weakness.1/5 strength upper and lower ext. + babinski on left side. PSYCH: Normal mood, normal affect. SKIN: Warm, dry, normal turgor, no rashes or lesions noted Laboratory Results - last 24 hr 07/16/17 07/16/17 07/16/17 18:10 18:10 18:10 WBC 9.4 RBC 3.15 L Hgb 6.7 L* Hct 23.0 L MCV 72.8 L MCH 21.2 L MCHC 29.1 L RDW 19.6 H Plt Count 252 MPV 9.4 Neutrophils % 84.9 H Lymphocytes % 8.1 Monocytes % 5.6 Eosinophils % 0.6 Basophils % 0.8 Hypochromia 3+ Anisocytosis 1+ Microcytosis 1+ Target Cells 1+ Ovalocytes 1+ PT with INR 14.60 H INR 1.29 H Sodium 172 H* Potassium 5.3 H Chloride 143 H Carbon Dioxide 18 L Anion Gap 11 BUN 79 H Creatinine 4.9 H Creat Clearance w eGFR 8.48 Random Glucose 97 Lactic Acid Calcium 8.2 L Phosphorus Magnesium Total Bilirubin 0.3 AST 48 H ALT 22 Alkaline Phosphatase 118 H Creatine Kinase 939 H Creatine Kinase Index 1.0 CK-MB (CK-2) 9.860 H Troponin I 0.07 H Total Protein 9.2 H Albumin 2.9 L Triglycerides 129 Cholesterol 141 Total LDL Cholesterol 84 HDL Cholesterol 40 TSH Urine Color Urine Appearance Urine pH Ur Specific [place] Urine Protein Urine Glucose (UA) Urine Ketones Urine Blood Urine Nitrite Urine Bilirubin Urine Urobilinogen Ur Leukocyte Esterase Ur Epithelial Cells Urine Bacteria Urine Mucus Urine Yeast Blood Type Antibody Screen Crossmatch 07/16/17 07/16/17 07/16/17 18:10 18:10 21:00 WBC RBC Hgb Hct MCV MCH MCHC RDW Plt Count MPV Neutrophils % Lymphocytes % Monocytes % Eosinophils % Basophils % Hypochromia Anisocytosis Microcytosis Target Cells Ovalocytes PT with INR INR Sodium Potassium Chloride Carbon Dioxide Anion Gap BUN Creatinine Creat Clearance w eGFR Random Glucose Lactic Acid Calcium Phosphorus Magnesium 3.4 H Total Bilirubin AST ALT Alkaline Phosphatase Creatine Kinase Creatine Kinase Index CK-MB (CK-2) Troponin I 0.07 H Total Protein Albumin Triglycerides Cholesterol Total LDL Cholesterol HDL Cholesterol TSH Urine Color Dkyellow Urine Appearance Turbid Urine pH 5.0 Ur Specific [place] 1.017 Urine Protein 1+ H Urine Glucose (UA) Negative Urine Ketones Trace H Urine Blood 2+ H Urine Nitrite Negative Urine Bilirubin Negative Urine Urobilinogen Negative Ur Leukocyte Esterase 3+ H Ur Epithelial Cells Few Urine Bacteria Rare Urine Mucus Rare Urine Yeast Many Blood Type B NEGATIVE Antibody Screen Negative Crossmatch See Detail 07/17/17 07/17/17 07/17/17 01:00 01:00 01:00 WBC RBC Hgb Hct MCV MCH MCHC RDW Plt Count MPV Neutrophils % Lymphocytes % Monocytes % Eosinophils % Basophils % Hypochromia Anisocytosis Microcytosis Target Cells Ovalocytes PT with INR INR Sodium 175 H* Potassium 5.3 H Chloride 144 H Carbon Dioxide 20 L Anion Gap 11 BUN 89 H Creatinine 5.5 H Creat Clearance w eGFR 7.42 Random Glucose 77 D Lactic Acid 1.4 Calcium 8.4 L Phosphorus Magnesium Total Bilirubin 0.3 AST 43 H ALT 22 Alkaline Phosphatase 111 Creatine Kinase Creatine Kinase Index CK-MB (CK-2) Troponin I Total Protein 8.9 H Albumin 2.8 L Triglycerides Cholesterol Total LDL Cholesterol HDL Cholesterol TSH 1.08 Urine Color Urine Appearance Urine pH Ur Specific [place] Urine Protein Urine Glucose (UA) Urine Ketones Urine Blood Urine Nitrite Urine Bilirubin Urine Urobilinogen Ur Leukocyte Esterase Ur Epithelial Cells Urine Bacteria Urine Mucus Urine Yeast Blood Type Antibody Screen Crossmatch 07/17/17 07/17/17 06:05 06:05 WBC 10.5 H RBC 3.23 L Hgb 7.6 L D Hct 24.4 L MCV 75.7 L MCH 23.6 L MCHC 31.1 L RDW 20.8 H Plt Count 203 MPV 9.2 Neutrophils % Lymphocytes % Monocytes % Eosinophils % Basophils % Hypochromia Anisocytosis Microcytosis Target Cells Ovalocytes PT with INR INR Sodium 173 H* Potassium 5.4 H Chloride 143 H Carbon Dioxide 19 L Anion Gap 11 BUN 88 H Creatinine 5.5 H Creat Clearance w eGFR Random Glucose 75 Lactic Acid Calcium 7.9 L Phosphorus 6.8 H Magnesium 3.1 H Total Bilirubin AST ALT Alkaline Phosphatase Creatine Kinase Creatine Kinase Index CK-MB (CK-2) Troponin I Total Protein Albumin Triglycerides Cholesterol Total LDL Cholesterol HDL Cholesterol TSH Urine Color Urine Appearance Urine pH Ur Specific [place] Urine Protein Urine Glucose (UA) Urine Ketones Urine Blood Urine Nitrite Urine Bilirubin Urine Urobilinogen Ur Leukocyte Esterase Ur Epithelial Cells Urine Bacteria Urine Mucus Urine Yeast Blood Type Antibody Screen Crossmatch Active Medications Generic Name Dose Route Start Last Admin Trade Name Freq PRN Reason Stop Dose Admin Famotidine/Sodium Chloride 20 mg in 50 mls @ 100 mls/hr 07/16/17 23:45 00:25 Pepcid 20 Mg Premixed Ivpb - IVPB 100 mls/hr Q48H CALVIN Administration Sodium Chloride 1,000 mls @ 100 mls/hr 07/17/17 10:30 07/17/17 10:30 Normal Saline - IV 100 mls/hr ASDIR CALVIN Administration Insulin Aspart 1 vial 07/17/17 12:00 Novolog Vial Sliding Scale - SQ Q6H CALVIN Protocol ASSESSMENT/PLAN: This is an 81-year-old woman with a history of type 2 DM, seizure disorder, lymphedema, HTN, cardiomyopathy, colon cancer, colon resection, dementia who presented to the ER on 07/16 with altered mental status and left-sided weakness since a fall on 07/14. P) NEURO: * Acute right basal ganglia ischemic CVA * Neurology consult appreciated * Recommend starting aspirin, Lipitor if patient is able and patient/family are agreeable to treatment * CT also showed left parietal encephalomalacia vs subacute infarct vs mass * MRI of brain when stable * Carotid dopplers * Echocardiogram * Lipid profile done * History of siezure disorder but no meds for over one year. CV: * History of Dialated CM seen by Francescone in past. * Will try to obtain old records. * permissive HTN at this time-->lopressor IV PRN for SBP >170 Pulmonary:. * No active pulmonary issues. ENDO: * type 2 DM * Fingersticks with Novolog sliding scale * Check HgbA1c Renal: * Hypernatremia- water def. of 5.1L * Will replete with NS @ 100ml/hr * renal us and urine lytes pending. * Nephrology consult appreciated. FEN: * IVF with NS @ 100ml /hr * Will recheck BMP * NPO for now pending swallow eval. Visit type - Emergency Visit Emergency Visit: Yes ED Registration Date: 07/16/17 Care time: The patient presented to the Emergency Department on the above date and was hospitalized for further evaluation of their emergent condition. - New Patient This patient is new to me today: Yes Date on this admission: 07/18/17 - Critical Care Critical Care patient: Yes Total Critical Care Time (in minutes): 62 Critical Care Statement: The care of this patient involved high complexity decision making to prevent further life threatening deterioration of the patient 's condition and/or to evaluate & treat vital organ system(s) failure or risk of failure.
[2017-07-17] MEDS: INSULIN SLIDING SCALE (NOVOLOG) 1 VIAL SQ SCH ×2 (12:59→20:56)
--- NOTE | 2017-07-17 13:19 | PN ---
Teaching Attending Note Name of Resident: Elvin Bowman ATTENDING PHYSICIAN STATEMENT I saw and evaluated the patient. I reviewed the resident's note and discussed the case with the resident. I agree with the resident's findings and plan as documented. SUBJECTIVE: Patient seen and examined in the ICU. Lethargic but arousable and able to follow some simple commands. No pressors. Intake & Output 07/14/17 07/15/17 07/16/17 07/17/17 23:59 23:59 23:59 23:59 Intake Total 900 Output Total 0 Balance 900 Weight 120 lb 95 lb 8 oz Last Vital Signs Temp Pulse Resp BP Pulse Ox 97.3 F L 86 33 H 167/54 100 07/17/17 12:00 07/17/17 12:00 07/17/17 12:00 07/17/17 12:00 07/17/17 09:00 Active Medications Famotidine/Sodium Chloride (Pepcid 20 Mg Premixed Ivpb -) 20 mg in 50 mls @ 100 mls/hr IVPB Q48H [facility] Last Admin: 07/17/17 00:25 Dose: 100 mls/hr Sodium Chloride (Normal Saline -) 1,000 mls @ 100 mls/hr IV ASDIR [facility] Last Admin: 07/17/17 10:30 Dose: 100 mls/hr Insulin Aspart (Novolog Vial Sliding Scale -) 1 vial SQ Q6H [facility] PRN Reason: Protocol Last Admin: 07/17/17 12:59 Dose: Not Given Constitutional: Yes: Lethargic, Cachectic, Thin Eyes: Yes: PERRL HENT: Yes: Drooling Cardiovascular: Yes: Regular Rate and Rhythm, S1, S2 Respiratory: Yes: CTA Bilaterally Gastrointestinal: Yes: Normal Bowel Sounds, Soft Edema: Yes Edema: LLE: 2+, RLE: 2+ Neurological: Yes: Aphasia, Facial Droop (left side) ...Motor Strength: LUE (flacid), LLE (1/5) Labs: Laboratory Results - last 24 hr 07/16/17 07/16/17 07/16/17 18:10 18:10 18:10 WBC 9.4 RBC 3.15 L Hgb 6.7 L* Hct 23.0 L MCV 72.8 L MCH 21.2 L MCHC 29.1 L RDW 19.6 H Plt Count 252 MPV 9.4 Neutrophils % 84.9 H Lymphocytes % 8.1 Monocytes % 5.6 Eosinophils % 0.6 Basophils % 0.8 Hypochromia 3+ Anisocytosis 1+ Microcytosis 1+ Target Cells 1+ Ovalocytes 1+ PT with INR 14.60 H INR 1.29 H Sodium 172 H* Potassium 5.3 H Chloride 143 H Carbon Dioxide 18 L Anion Gap 11 BUN 79 H Creatinine 4.9 H Creat Clearance w eGFR 8.48 Random Glucose 97 Serum Osmolality Lactic Acid Calcium 8.2 L Phosphorus Magnesium Total Bilirubin 0.3 AST 48 H ALT 22 Alkaline Phosphatase 118 H Creatine Kinase 939 H Creatine Kinase Index 1.0 CK-MB (CK-2) 9.860 H Troponin I 0.07 H Total Protein 9.2 H Albumin 2.9 L Triglycerides 129 Cholesterol 141 Total LDL Cholesterol 84 HDL Cholesterol 40 TSH Urine Color Urine Appearance Urine pH Ur Specific Earling Urine Protein Urine Glucose (UA) Urine Ketones Urine Blood Urine Nitrite Urine Bilirubin Urine Urobilinogen Ur Leukocyte Esterase Ur Epithelial Cells Urine Bacteria Urine Mucus Urine Yeast Blood Type Antibody Screen Crossmatch 07/16/17 07/16/17 07/16/17 18:10 18:10 21:00 WBC RBC Hgb Hct MCV MCH MCHC RDW Plt Count MPV Neutrophils % Lymphocytes % Monocytes % Eosinophils % Basophils % Hypochromia Anisocytosis Microcytosis Target Cells Ovalocytes PT with INR INR Sodium Potassium Chloride Carbon Dioxide Anion Gap BUN Creatinine Creat Clearance w eGFR Random Glucose Serum Osmolality Lactic Acid Calcium Phosphorus Magnesium 3.4 H Total Bilirubin AST ALT Alkaline Phosphatase Creatine Kinase Creatine Kinase Index CK-MB (CK-2) Troponin I 0.07 H Total Protein Albumin Triglycerides Cholesterol Total LDL Cholesterol HDL Cholesterol TSH Urine Color Dkyellow Urine Appearance Turbid Urine pH 5.0 Ur Specific Earling 1.017 Urine Protein 1+ H Urine Glucose (UA) Negative Urine Ketones Trace H Urine Blood 2+ H Urine Nitrite Negative Urine Bilirubin Negative Urine Urobilinogen Negative Ur Leukocyte Esterase 3+ H Ur Epithelial Cells Few Urine Bacteria Rare Urine Mucus Rare Urine Yeast Many Blood Type B NEGATIVE Antibody Screen Negative Crossmatch See Detail 07/17/17 07/17/17 07/17/17 01:00 01:00 01:00 WBC RBC Hgb Hct MCV MCH MCHC RDW Plt Count MPV Neutrophils % Lymphocytes % Monocytes % Eosinophils % Basophils % Hypochromia Anisocytosis Microcytosis Target Cells Ovalocytes PT with INR INR Sodium 175 H* Potassium 5.3 H Chloride 144 H Carbon Dioxide 20 L Anion Gap 11 BUN 89 H Creatinine 5.5 H Creat Clearance w eGFR 7.42 Random Glucose 77 D Serum Osmolality Lactic Acid 1.4 Calcium 8.4 L Phosphorus Magnesium Total Bilirubin 0.3 AST 43 H ALT 22 Alkaline Phosphatase 111 Creatine Kinase Creatine Kinase Index CK-MB (CK-2) Troponin I Total Protein 8.9 H Albumin 2.8 L Triglycerides Cholesterol Total LDL Cholesterol HDL Cholesterol TSH 1.08 Urine Color Urine Appearance Urine pH Ur Specific Earling Urine Protein Urine Glucose (UA) Urine Ketones Urine Blood Urine Nitrite Urine Bilirubin Urine Urobilinogen Ur Leukocyte Esterase Ur Epithelial Cells Urine Bacteria Urine Mucus Urine Yeast Blood Type Antibody Screen Crossmatch 07/17/17 07/17/17 06:05 06:05 WBC 10.5 H RBC 3.23 L Hgb 7.6 L D Hct 24.4 L MCV 75.7 L MCH 23.6 L MCHC 31.1 L RDW 20.8 H Plt Count 203 MPV 9.2 Neutrophils % Lymphocytes % Monocytes % Eosinophils % Basophils % Hypochromia Anisocytosis Microcytosis Target Cells Ovalocytes PT with INR INR Sodium 173 H* Potassium 5.4 H Chloride 143 H Carbon Dioxide 19 L Anion Gap 11 BUN 88 H Creatinine 5.5 H Creat Clearance w eGFR Random Glucose 75 Serum Osmolality 395 H Lactic Acid Calcium 7.9 L Phosphorus 6.8 H Magnesium 3.1 H Total Bilirubin AST ALT Alkaline Phosphatase Creatine Kinase Creatine Kinase Index CK-MB (CK-2) Troponin I Total Protein Albumin Triglycerides Cholesterol Total LDL Cholesterol HDL Cholesterol TSH Urine Color Urine Appearance Urine pH Ur Specific Earling Urine Protein Urine Glucose (UA) Urine Ketones Urine Blood Urine Nitrite Urine Bilirubin Urine Urobilinogen Ur Leukocyte Esterase Ur Epithelial Cells Urine Bacteria Urine Mucus Urine Yeast Blood Type Antibody Screen Crossmatch Problem List - Problems (1) Hypernatremia Code(s): E87.0 - HYPEROSMOLALITY AND HYPERNATREMIA (2) CVA (cerebral vascular accident) Code(s): I63.9 - CEREBRAL INFARCTION, UNSPECIFIED Qualifiers: CVA mechanism: occlusion Precerebral and cerebral artery: basilar artery Qualified Code(s): I63.22 - Cerebral infarction due to unspecified occlusion or stenosis of basilar artery (3) ARF (acute renal failure) Code(s): N17.9 - ACUTE KIDNEY FAILURE, UNSPECIFIED Qualifiers: Acute renal failure type: unspecified Qualified Code(s): N17.9 - Acute kidney failure, unspecified (4) Dehydration Code(s): E86.0 - DEHYDRATION Assessment/Plan IVF per Renal Strict I&O Glycemic control Follow K+ levels Normal transfusion thresholds PO if tolerated, if not will need NGT GI prophylaxis ICU monitoring Dr Krishnamurthy Critical care time spent in reviewing chart, evaluating patient and formulating plan - 40 minutes.
[2017-07-17 13:48] LABS: ARTERIAL BLOOD GAS pH 7.33 (7.35-7.45)
[2017-07-17 13:49] LABS: ARTERIAL BLOOD GAS HCO3 15.6 meq/L (22-26); ARTERIAL BLOOD GAS PO2 81.6 mmHg (68-100)
[2017-07-17 14:04] LABS: ART PUNCT SITE LEFT BRACHIAL
[2017-07-17 14:05] LABS: LPM/O2% 28%; PT. ON O2? YES; TYPE OF O2 VENTMASK
[2017-07-17 14:06] LABS: ARTERIAL BLD GAS O2 SATURATION 94.7 % (90-98.9)
[2017-07-17 19:02] LABS: ANION GAP 11 (8-16); CALCIUM 7.4 mg/dL (8.5-10.1); CO2 16 mmol/L (21-32); CREATININE 5.1 mg/dL (0.55-1.02); GLUCOSE,RANDOM 59 mg/dL (74-106)
--- NOTE | 2017-07-17 21:56 | EKG ---
Test Reason : Blood Pressure : / mmHG Vent. Rate : 083 BPM Atrial Rate : 083 BPM P-R Int : 140 ms QRS Dur : 064 ms QT Int : 432 ms P-R-T Axes : 084 -10 060 degrees QTc Int : 507 ms POOR DATA QUALITY, INTERPRETATION MAY BE ADVERSELY AFFECTED NORMAL SINUS RHYTHM POSSIBLE LEFT ATRIAL ENLARGEMENT PROLONGED QT ABNORMAL ECG WHEN COMPARED WITH ECG OF 24-DEC-2007 07:39, QT HAS LENGTHENED Confirmed by HIWOT LI MD ([id number]) on 07/17/2017 9:56:38 PM Referred By: Confirmed By:HIWOT LI MD
[2017-07-17] MEDS ORDERED: DEXTROSE 50%-WATER - 25 GM/50 ML VIAL ONE (22:02)
[2017-07-17] MEDS ORDERED: DEXTROSE 5%-NORMAL SALINE 1,000 ML IV SCH (22:15)
[2017-07-17] MEDS ORDERED: DEXTROSE 50%-WATER 25 GM/50 ML DISP.SYRIN IVPUSH ONE (22:15)
[2017-07-18] MEDS: INSULIN SLIDING SCALE (NOVOLOG) 1 VIAL SQ SCH ×4 (03:44→19:11)
[2017-07-18 07:02] LABS: MCH 22.8 pg (25.7-33.7); MCHC 30.6 g/dl (32.0-36.0); MEAN CELL VOLUME 74.5 fl (80-96); MEAN PLT VOLUME 9.8 fl (7.5-11.1); PLATELET COUNT 146 K/MM3 (134-434); RDW 20.9 % (11.6-15.6); WHITE BLOOD COUNT 5.5 K/mm3 (4.0-10.0)
[2017-07-18 07:30] LABS: ALBUMIN 2.1 g/dl (3.4-5.0); ALK PHOS 88 U/L (45-117); ANION GAP 12 (8-16); BILIRUBIN,DIRECT 0.2 mg/dL (0.0-0.2); BILIRUBIN,TOTAL 0.5 mg/dL (0.2-1.0); CALCIUM 7.6 mg/dL (8.5-10.1); CO2 16 mmol/L (21-32); CPK 682 IU/L (26-192); CREATININE 5.4 mg/dL (0.55-1.02); FERRITIN 54.076 ng/ml (6.9-282.5); GLUCOSE,RANDOM 105 mg/dL (74-106); SGOT/AST 40 U/L (15-37); SGPT/ALT 20 U/L (12-78); TOT PROT 7.4 g/dl (6.4-8.2)
[2017-07-18] MEDS ORDERED: DEXTROSE 5%-0.45% SALINE 1,000 ML IV SCH (08:45)
[2017-07-18 08:47] LABS: CHOLESTEROL 103 mg/dL (50-200)
[2017-07-18] MEDS ORDERED: PT OWN MED DRAWER 7, Y5N ONE (08:51)
--- NOTE | 2017-07-18 10:40 | PN ---
Progress Note (short form) - Note Progress Note: Renal Follow up for DARLENE/Hypernatremia Pt seen and examined in the ICU pt is not alert not in distress gomez in place but not much urine production on IVF Vital Signs Temperature 97.6 F 07/18/17 08:00 Pulse Rate 76 07/18/17 08:00 Respiratory Rate 27 H 07/18/17 08:00 Blood Pressure 151/47 07/18/17 08:00 O2 Sat by Pulse Oximetry (%) 96 07/18/17 06:35 Intake & Output 07/15/17 07/16/17 07/17/17 07/18/17 23:59 23:59 23:59 23:59 Intake Total 2600 700 Output Total 0 400 Balance 2600 300 Weight 54.431 kg 43.318 kg 43.318 kg NAD not awake and alert RRR, No M/R CTA, no rales Soft NT/ND No LE edema CBC, BMP 07/18/17 05:10 07/18/17 05:10 Current Medications Famotidine/Sodium Chloride (Pepcid 20 Mg Premixed Ivpb -) 20 mg in 50 mls @ 100 mls/hr IVPB Q48H [facility] Last Admin: 07/17/17 00:25 Dose: 100 mls/hr Dextrose/Sodium Chloride (D5-1/2ns -) 1,000 mls @ 100 mls/hr IV ASDIR [facility] Last Admin: 07/18/17 09:30 Dose: 100 mls/hr Insulin Aspart (Novolog Vial Sliding Scale -) 1 vial SQ Q6H [facility] PRN Reason: Protocol Last Admin: 07/18/17 06:09 Dose: Not Given 81 year old woman with PMhx of DM, seizure disorder, lymphedema, Cardiomyopathy , HTN, Colon Cancer s/p resection in 2008, renal insufficiency (Cr 1.85 in 2013) , dementia who presented with AMS and left sided weakness with Hypernatremia and Acute Renal failure. #Acute on chronic renal insufficiency with possible uremia/AMS Renal function w/o significant improvement despite > 24 hours of IVF pt remains oliguric Given lack of improvement and AMS pt warrents dialysis at this time Telephone consent obtained from Sophia (Ms. Hickey) for 2 hour HD today, followed by 2nd HD tomorrow will use a high Sodium level with HD to prevent too rapid a correction of her Na #Hypernatremia Water deficit is ~5L this am Continue hypotonic saline Trend Na Q12h, repeat Na level 2 hours after dialysis is completed #Hyperkalemia improved today #AMS/CVA Supportive Care permissive hypertension #Metabolic Acidosis trend serum bicarb with dialysis Florentino Alberto DO Problem List - Problems (1) ARF (acute renal failure) Code(s): N17.9 - ACUTE KIDNEY FAILURE, UNSPECIFIED Qualifiers: Acute renal failure type: unspecified Qualified Code(s): N17.9 - Acute kidney failure, unspecified (2) CVA (cerebral vascular accident) Code(s): I63.9 - CEREBRAL INFARCTION, UNSPECIFIED Qualifiers: CVA mechanism: occlusion Precerebral and cerebral artery: basilar artery Qualified Code(s): I63.22 - Cerebral infarction due to unspecified occlusion or stenosis of basilar artery (3) Dehydration Code(s): E86.0 - DEHYDRATION (4) Hypernatremia Code(s): E87.0 - HYPEROSMOLALITY AND HYPERNATREMIA
--- NOTE | 2017-07-18 10:51 | PN ---
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 As per house staff the acute weakness occurred 3 days prior to admission and then the patient became progressively non-functional, lethargic and hasn't been taking adequate food or drink. She is in hospital bed, now wearing O2 mask and unresponsive. - Current Medication List Current Medications: Active Medications Famotidine/Sodium Chloride (Pepcid 20 Mg Premixed Ivpb -) 20 mg in 50 mls @ 100 mls/hr IVPB Q48H [facility] Last Admin: 07/17/17 00:25 Dose: 100 mls/hr Dextrose/Sodium Chloride (D5-1/2ns -) 1,000 mls @ 75 mls/hr IV ASDIR [facility] Insulin Aspart (Novolog Vial Sliding Scale -) 1 vial SQ Q6H [facility] PRN Reason: Protocol Last Admin: 07/18/17 06:09 Dose: Not Given - Objective Vital Signs: Vital Signs Temperature 97.6 F 07/18/17 08:00 Pulse Rate 74 07/18/17 10:00 Respiratory Rate 26 H 07/18/17 10:00 Blood Pressure 128/42 07/18/17 10:00 O2 Sat by Pulse Oximetry (%) 96 07/18/17 06:35 Respiratory: Yes: Tachypnea Neurological: Yes: Other (patient in hospital bed, not opening eyes to voice or tactile stimuli. Cranial Nerves II-XII Intact: more difficult to assess facial symmetry today. DTR's: 0 Left Achilles, 0 Right Achilles, 2+ Left Bicep, 2+ Right Bicep, 2+ Left Tricep, 2+ Right Tricep Babinski: Present (on the left side )) Labs: CBC, BMP 07/18/17 05:10 07/18/17 05:10 INR, PTT INR 1.29 (0.82-1.09) H 07/16/17 18:10 Problem List - Problems (1) ARF (acute renal failure) Code(s): N17.9 - ACUTE KIDNEY FAILURE, UNSPECIFIED Qualifiers: Acute renal failure type: unspecified Qualified Code(s): N17.9 - Acute kidney failure, unspecified (2) CVA (cerebral vascular accident) Code(s): I63.9 - CEREBRAL INFARCTION, UNSPECIFIED Qualifiers: CVA mechanism: occlusion Precerebral and cerebral artery: basilar artery Qualified Code(s): I63.22 - Cerebral infarction due to unspecified occlusion or stenosis of basilar artery (3) Dehydration Code(s): E86.0 - DEHYDRATION (4) Hypernatremia Code(s): E87.0 - HYPEROSMOLALITY AND HYPERNATREMIA Assessment/Plan Based on the history and imaging, she probably had a basal right basal ganglia stroke 3 days prior to admission. Since that time, she has not been able to care for herself, resulting in poor po intake and progression of her symptoms which is likely metabolic in nature. The nature of the lesion in the left parietal lobe is not clear, and when possible, MRI should be obtained to better understand what this represents whether it is encephalomalacea from an old insult or whether it represents a neoplasm. Unfortunately, contrast cannot be given due to her renal status, but the MRI should be able to at least help us distinguish some of these. Her metabolic status has not improved and she appears less responsive today. I'd recommend aspirin and statin for now, and if medically able repeat CT head.
--- NOTE | 2017-07-18 12:52 | PN ---
Teaching Attending Note Name of Resident: Tom Hernandez ATTENDING PHYSICIAN STATEMENT I saw and evaluated the patient. I reviewed the resident's note and discussed the case with the resident. I agree with the resident's findings and plan as documented. SUBJECTIVE: Pt seen and examined in the ICU. Poorly responsive on ventimask. More normothermic but still with severe metabolic derangements. OBJECTIVE: Last Vital Signs Temp Pulse Resp BP Pulse Ox 97.6 F 74 26 H 128/42 96 07/18/17 08:00 07/18/17 10:00 07/18/17 10:00 07/18/17 10:00 07/18/17 06:35 Intake & Output 07/15/17 07/16/17 07/17/17 07/18/17 23:59 23:59 23:59 23:59 Intake Total 2600 700 Output Total 0 400 Balance 2600 300 Weight 120 lb 95 lb 8 oz 95 lb 8 oz Gen: poorly responsive, tachypneic at rest Heart: RRR Lung: decreased breath sounds at the bases Abd: soft, nontender Ext: no edema CBC, BMP 07/18/17 05:10 07/18/17 05:10 Active Medications Famotidine/Sodium Chloride (Pepcid 20 Mg Premixed Ivpb -) 20 mg in 50 mls @ 100 mls/hr IVPB Q48H [facility] Last Admin: 07/17/17 00:25 Dose: 100 mls/hr Dextrose/Sodium Chloride (D5-1/2ns -) 1,000 mls @ 75 mls/hr IV ASDIR [facility] Insulin Aspart (Novolog Vial Sliding Scale -) 1 vial SQ Q6H [facility] PRN Reason: Protocol Last Admin: 07/18/17 06:09 Dose: Not Given ASSESSMENT AND PLAN: Acute/Subacute CVA Severe Hypernatremia Acute on Chronic Renal Failure Altered Mental Status HTN Seizure disorder DM h/o colon ca - will place HD catheter - monitor lytes - IVF - free water replacement - permissive HTN - echocardiogram - carotid dopplers - MRI brain given h/o colon ca - aspiration precautions - low threshold for intubation for airway protection - DVT prophylaxis - continue ICU monitoring critical care time spent in reviewing chart, evaluating patient and formulating plan 35 min
[2017-07-18] MEDS: DEXTROSE 5%-0.45% SALINE 1,000 ML IV SCH (13:00)
[2017-07-18] MEDS ORDERED: PROPOFOL 1,000,000 MCG/100 ML VIAL ONE (13:10)
--- NOTE | 2017-07-18 14:12 | PROC ---
<Elvin Bowman - Last Filed: 07/18/17 14:11> Intubation - Intubation Reason for Intubation: Airway Protection Intubation Method: orotracheal Blade used: Mac Tube Size (cm): 7.5 Tube position @ lip (cm): 22 Tube position confirmed by: Direct visualization, CO2 detector, Chest x-ray, Breath sounds Breath Sounds after Intubation: equal Post Intubation Xray: Yes <Emanuel Cespedes MD - Last Filed: 07/18/17 14:17> Procedure Note Procedure: I supervised and was present during the entire procedure. Emanuel Cespedes MD
--- NOTE | 2017-07-18 14:13 | PROC ---
<Elvin Bowman - Last Filed: 07/18/17 14:12> Central Line Insertion Indication: Other (dialysis) Risks and Benefits Explained: Yes Consent on Chart: Yes Central Line: Dialysis Cath, Tri Lumen Anesthesia: 1% Lidocaine Sterile Technique: Yes Ultrasound Guided Assistance: Yes Position: Right Internal Jugular Post Insertion: Yes: Chest X-Ray Ordered Sterile Dressing Applied: Yes <Emanuel Cespedes MD - Last Filed: 07/18/17 14:19> Procedure Note Procedure: I supervised and was present during the entire procedure. Emanuel Cespedes MD
--- NOTE | 2017-07-18 14:43 | PN ---
Physical Exam: SUBJECTIVE: The patient is an 81F with a PMH of DM, dementia, prior CVA/TIA, seizure disorder, colon ca s/p resection who presented with multiple falls and new L sided weakness, along with AMS for 3 days prior to admission. She was found to have multiple metabolic abnormalities and a CT head showing multiple infarcts of varying age. Overnight she had a fingerstick glucose of 61 and was given 1 amp of D50 with a resulting BG of 124. She is nonverbal. OBJECTIVE: Vital Signs Period Temp Pulse Resp BP Sys/Garcia Pulse Ox Last 24 Hr 97.2 F-98.5 F 74-95 21-39 128-180/42-60 96-100 GENERAL: The patient is awake, not alert or oriented, in no acute distress. HEAD: Normal with no signs of trauma. EYES: PERRL, extraocular movements intact, sclera anicteric, conjunctiva clear. No ptosis. ENT: Ears normal, nares patent, oropharynx clear without exudates, moist mucous membranes. NECK: Trachea midline, full range of motion, supple. LUNGS: Breath sounds equal, clear to auscultation bilaterally, no wheezes, no crackles, no accessory muscle use. HEART: Regular rate and rhythm, S1, S2 without murmur, rub or gallop. ABDOMEN: Soft, nontender, nondistended, normoactive bowel sounds, no guarding, no rebound, no hepatosplenomegaly, no masses. EXTREMITIES: 2+ pulses, warm, well-perfused, no edema. NEUROLOGICAL: Cranial nerves II through XII grossly intact. Normal speech, gait not observed. PSYCH: Normal mood, normal affect. SKIN: Warm, dry, normal turgor, no rashes or lesions noted Laboratory Results - last 24 hr 07/16/17 07/17/17 07/17/17 18:10 09:20 18:00 WBC RBC Hgb Hct MCV MCH MCHC RDW Plt Count MPV Neutrophils % Lymphocytes % Sodium 172 H* Potassium 5.4 H Chloride 145 H Carbon Dioxide 16 L Anion Gap 11 BUN 92 H Creatinine 5.1 H Random Glucose 59 L D Hemoglobin A1c % Calcium 7.4 L Magnesium Ferritin Total Bilirubin Direct Bilirubin AST ALT Alkaline Phosphatase Creatine Kinase Creatine Kinase Index CK-MB (CK-2) Total Protein Albumin Triglycerides Cholesterol Total LDL Cholesterol HDL Cholesterol Urine Osmolality 489 U Random Total Protein Ur Random Sodium Ur Random Potassium Ur Random Chloride Ur Random Urea Nitrogn Urine Creatinine Blood Type B NEGATIVE Antibody Screen Negative Crossmatch See Detail Spec Expiration Date 07/17/17 07/17/17 07/17/17 18:00 18:00 18:00 WBC RBC Hgb Hct MCV MCH MCHC RDW Plt Count MPV Neutrophils % Lymphocytes % Sodium Potassium Chloride Carbon Dioxide Anion Gap BUN Creatinine Random Glucose Hemoglobin A1c % Calcium Magnesium Ferritin Total Bilirubin Direct Bilirubin AST ALT Alkaline Phosphatase Creatine Kinase Creatine Kinase Index CK-MB (CK-2) Total Protein Albumin Triglycerides Cholesterol Total LDL Cholesterol HDL Cholesterol Urine Osmolality U Random Total Protein Ur Random Sodium 41 Ur Random Potassium 63.8 Ur Random Chloride 14 Ur Random Urea Nitrogn 640 Urine Creatinine 238.0 Blood Type Antibody Screen Crossmatch Spec Expiration Date 07/17/17 07/18/17 07/18/17 18:00 05:10 05:10 WBC 5.5 D RBC 3.07 L Hgb 7.0 L Hct 22.9 L MCV 74.5 L MCH 22.8 L MCHC 30.6 L RDW 20.9 H Plt Count 146 D MPV 9.8 Neutrophils % No Result Required. Lymphocytes % No Result Required. Sodium 177 H* Potassium 4.2 D Chloride 149 H Carbon Dioxide 16 L Anion Gap 12 BUN 97 H Creatinine 5.4 H Random Glucose 105 D Hemoglobin A1c % Calcium 7.6 L Magnesium 3.0 H Ferritin 54.076 Total Bilirubin 0.5 D Direct Bilirubin 0.2 AST 40 H ALT 20 Alkaline Phosphatase 88 D Creatine Kinase 682 H Creatine Kinase Index 0.8 CK-MB (CK-2) 5.932 H Total Protein 7.4 Albumin 2.1 L D Triglycerides 111 Cholesterol 103 D Total LDL Cholesterol 56 HDL Cholesterol 33 L Urine Osmolality U Random Total Protein 135 H Ur Random Sodium Ur Random Potassium Ur Random Chloride Ur Random Urea Nitrogn Urine Creatinine Blood Type Antibody Screen Crossmatch Spec Expiration Date 07/18/17 07/18/17 05:10 05:10 WBC RBC Hgb Hct MCV MCH MCHC RDW Plt Count MPV Neutrophils % Lymphocytes % Sodium Potassium Chloride Carbon Dioxide Anion Gap BUN Creatinine Random Glucose Hemoglobin A1c % 5.6 Calcium Magnesium Ferritin Total Bilirubin Direct Bilirubin AST ALT Alkaline Phosphatase Creatine Kinase Creatine Kinase Index CK-MB (CK-2) Total Protein Albumin Triglycerides Cancelled Cholesterol Cancelled Total LDL Cholesterol Cancelled HDL Cholesterol Cancelled Urine Osmolality U Random Total Protein Ur Random Sodium Ur Random Potassium Ur Random Chloride Ur Random Urea Nitrogn Urine Creatinine Blood Type Antibody Screen Crossmatch Spec Expiration Date Active Medications Generic Name Dose Route Start Last Admin Trade Name Candice PRN Reason Stop Dose Admin Famotidine/Sodium Chloride 20 mg in 50 mls @ 100 mls/hr 07/16/17 23:45 00:25 Pepcid 20 Mg Premixed Ivpb - IVPB 100 mls/hr Q48H [facility] Administration Dextrose/Sodium Chloride 1,000 mls @ 75 mls/hr 07/18/17 10:44 D5-1/2ns - IV [facility] Insulin Aspart 1 vial 07/17/17 12:00 07/18/17 06:09 Novolog Vial Sliding Scale - SQ Not Given Q6H [facility] Protocol ASSESSMENT/PLAN: The patient is an 81F with a PMH of CVA, seizures, DM, CKD, multiple subacute infarcts who presented with multiple falls and AMS who has multiple metabolic abnormalities. Neuro: Dementia - Not at baseline; per daughter she usually is walking and talking - Patient is now nonverbal CVA/TIA - CT head shows multiple infarcts - Monitor neurologic status - Currently sedated with fentanyl CV: - None Pulm: - None Renal: Hypernatremia - Switch to D5 1/2 with rate at 75ml/hour - Will dialyze per Dr. Alberto : - None GI: - Pepcid 20 for GI ppx ID: - None Hem/Onc: - Monitor H/H; Current is 7.6/22.9 Endocrine: DM - Novolog SQ q6H MSK: - None PPX: - None FEN (Fluids, electrolytes, nutrition): - Monitor hypernatremia - Continue D5-1/2NS Dispo: - Patient continued to be tachypneic with shallow breathing -> intubated - Trialysis catheter placed, will dialyze - Need to discuss goals of care with daughter Visit type - Emergency Visit Emergency Visit: Yes ED Registration Date: 07/16/17 Care time: The patient presented to the Emergency Department on the above date and was hospitalized for further evaluation of their emergent condition. - New Patient This patient is new to me today: Yes Date on this admission: 07/18/17 - Critical Care Critical Care patient: Yes Total Critical Care Time (in minutes): 50 Critical Care Statement: The care of this patient involved high complexity decision making to prevent further life threatening deterioration of the patient 's condition and/or to evaluate & treat vital organ system(s) failure or risk of failure.
[2017-07-18 14:56] LABS: METAMYELOCYTE 6 % (0-2); TOTAL CELLS COUNTED 100
[2017-07-18 14:57] LABS: PLATELET ESTIMATE ADEQUATE
[2017-07-18] MEDS: PROPOFOL 1,000,000 MCG/100 ML VIAL IVPUSH SCH (15:30)
--- NOTE | 2017-07-18 16:17 | PN ---
Progress Note, PRESENTATION DESIGNER - Note Progress Note: Pt intubated. Assessment deferred.
--- NOTE | 2017-07-18 23:05 | PN ---
Progress Note, Physician - Current Medication List Current Medications: Active Medications Famotidine/Sodium Chloride (Pepcid 20 Mg Premixed Ivpb -) 20 mg in 50 mls @ 100 mls/hr IVPB Q48H CALVIN Last Admin: 07/17/17 00:25 Dose: 100 mls/hr Dextrose/Sodium Chloride (D5-1/2ns -) 1,000 mls @ 75 mls/hr IV ASDIR CALVIN Last Admin: 07/18/17 13:00 Dose: 75 mls/hr Propofol (Diprivan -) 1,000,000 mcg in 100 mls @ 1.3 mls/hr IVPUSH TITR CALVIN; 5 MCG/KG/MIN PRN Reason: Protocol Last Admin: 07/18/17 15:30 Dose: 5 mcg/kg/min, 1.3 mls/hr Insulin Aspart (Novolog Vial Sliding Scale -) 1 vial SQ Q6H CALVIN PRN Reason: Protocol Last Admin: 07/18/17 19:11 Dose: Not Given - Objective Vital Signs: Vital Signs Temperature 98.8 F 07/18/17 20:00 Pulse Rate 89 07/18/17 22:00 Respiratory Rate 28 H 07/18/17 22:00 Blood Pressure 134/110 07/18/17 22:00 O2 Sat by Pulse Oximetry (%) 96 07/18/17 06:35 Labs: CBC, BMP 07/18/17 05:10 07/18/17 05:10 INR, PTT INR 1.29 (0.82-1.09) H 07/16/17 18:10 Problem List - Problems (1) Respiratory failure Code(s): J96.90 - RESPIRATORY FAILURE, UNSP, UNSP W HYPOXIA OR HYPERCAPNIA (2) ARF (acute renal failure) Code(s): N17.9 - ACUTE KIDNEY FAILURE, UNSPECIFIED Qualifiers: Acute renal failure type: unspecified Qualified Code(s): N17.9 - Acute kidney failure, unspecified (3) Anemia Code(s): D64.9 - ANEMIA, UNSPECIFIED (4) CVA (cerebral vascular accident) Code(s): I63.9 - CEREBRAL INFARCTION, UNSPECIFIED Qualifiers: CVA mechanism: occlusion Precerebral and cerebral artery: basilar artery Qualified Code(s): I63.22 - Cerebral infarction due to unspecified occlusion or stenosis of basilar artery (5) Hypernatremia Code(s): E87.0 - HYPEROSMOLALITY AND HYPERNATREMIA (6) HTN (hypertension) Code(s): I10 - ESSENTIAL (PRIMARY) HYPERTENSION (7) Altered mental status Code(s): R41.82 - ALTERED MENTAL STATUS, UNSPECIFIED (8) Diabetes Code(s): E11.9 - TYPE 2 DIABETES MELLITUS WITHOUT COMPLICATIONS
[2017-07-19] MEDS: INSULIN SLIDING SCALE (NOVOLOG) 1 VIAL SQ SCH ×4 (00:30→17:56)
[2017-07-19] MEDS: FAMOTIDINE 20 MG/50 ML IVPB 20 MG/50 ML MG IVPB SCH (00:52)
[2017-07-19] MEDS ORDERED: NOREPINEPHRINE BITARTRATE 4 MG/4 ML ML IV ONE ×4 (04:07→22:20)
--- NOTE | 2017-07-19 04:45 | PN ---
Progress Note (short form) - Note Progress Note: Event Note Called to bedside for Code 99. Pt had undergone first HD session last evening. Became hypotensive shortly after HD. Initially responded to fluid and then at approx 4am was started on Levophed. BP was normalizing but then abruptly pt became bradycardic and lost her pulse with wide complex PEA. On arrival CPR in progress, 1mg Epi and 2 amp NaHco3 given with return of ROSC after approx 3 min. Stat labs and CXR ordered. Pt non responsive, overbreathing vent, corneals intact. ABG pending. Given witness arrest, very short time to ROSC and altered mentation at base line will not initiate therapeutic hypothermia. Serial labs will be done Surrogate to be notified. Lewis Fong ACNP [id number]
[2017-07-19 04:46] LABS: ARTERIAL BLD GAS O2 SATURATION 77.9 % (90-98.9); ARTERIAL BLOOD GAS BASE EXCESS -9.2 meq/l (-2-2)
[2017-07-19 04:47] LABS: ALLENS TEST POSITIVE; ART PUNCT SITE RIGHT BRACHIAL; ARTERIAL BLOOD GAS PO2 48.8 mmHg (68-100); ARTERIAL BLOOD GAS pH 7.25 (7.35-7.45); LPM/O2% 100%; MECH. VENT. YES; PT. ON O2? YES; TYPE OF O2 MECH VENT; VENT RATE 12; VT/PRESS 400
[2017-07-19 04:48] LABS: ARTERIAL BLOOD GAS HCO3 16.7 meq/L (22-26)
[2017-07-19 04:57] LABS: BASOPHIL 0.1 % (0-2.0); EOSINOPHIL 0.1 % (0-4.5); MCH 24.1 pg (25.7-33.7); MCHC 30.9 g/dl (32.0-36.0); MEAN CELL VOLUME 77.9 fl (80-96); NEUTROPHILS 91.3 % (42.8-82.8); PLATELET COUNT 69 K/MM3 (134-434); RDW 19.6 % (11.6-15.6); WHITE BLOOD COUNT 6.8 K/mm3 (4.0-10.0)
[2017-07-19] MEDS ORDERED: LIDOCAINE HCL 1%, 10 MG/ML (20ML VIAL) ONE (05:16)
[2017-07-19 05:22] LABS: ALBUMIN 1.6 g/dl (3.4-5.0); ANION GAP 18 (8-16); CALCIUM 7.1 mg/dL (8.5-10.1); CO2 19 mmol/L (21-32); CREATININE 3.9 mg/dL (0.55-1.02); SGOT/AST 295 U/L (15-37); SGPT/ALT 93 U/L (12-78)
[2017-07-19 05:35] LABS: ALK PHOS 78 U/L (45-117); BILIRUBIN,TOTAL 1.1 mg/dL (0.2-1.0); CPK 1050 IU/L (26-192); TOT PROT 6.1 g/dl (6.4-8.2)
--- NOTE | 2017-07-19 05:42 | PROC ---
Chest Tube Insertion Consent on Chart: No (Emergent, tension) Chest tube #1 Indication: Pneumothorax Chest Tube Location: Right Lateral Anesthesia: 1% Lidocaine Size (Fr.): 8 Sterile Technique: Yes Tube Sutured to Skin: Yes Vaseline gauze dressing: Yes Chest Tube Collection System: Pleur-Evac Suction: Yes Remarks: Tension pneumothorax after cardiac arrest. Pt in shock, large R side PTX, high peak airway pressures. R chest prepped and draped in sterile fashion. Local anesthesia with 1% lidocaine 8Fr pigtail catheter placed in 4th-5th intercostal space R axillary, with large caballero of air noted, connected to pleuravac. Repeat CXR ordered. [id number]
[2017-07-19 05:45] LABS: GLUCOSE,RANDOM 25 mg/dL (74-106); TROPONIN I 0.73 ng/ml (0.00-0.05)
[2017-07-19] MEDS ORDERED: DEXTROSE 50%-WATER 25 GM/50 ML DISP.SYRIN ONE (05:46)
[2017-07-19] MEDS ORDERED: DEXTROSE 50%-WATER - 25 GM/50 ML VIAL IVPUSH ONE (05:49)
[2017-07-19 06:06] LABS: SERUM IRON 51 ug/dL (27-139); TOTAL IRON BINDING CAPACITY 214 ug/dL (250-450); UIBC 163 ug/dL (118-369)
[2017-07-19 06:41] LABS: ARTERIAL BLD GAS O2 SATURATION 99.4 % (90-98.9); ARTERIAL BLOOD GAS BASE EXCESS -10.3 meq/l (-2-2)
[2017-07-19 06:42] LABS: ALLENS TEST POSITIVE; ARTERIAL BLOOD GAS HCO3 15.4 meq/L (22-26); ARTERIAL BLOOD GAS pH 7.26 (7.35-7.45)
[2017-07-19 06:43] LABS: ART PUNCT SITE RIGHT RADIAL; LPM/O2% 60%; MECH. VENT. YES; PT. ON O2? YES; TYPE OF O2 MECH VENT; VENT RATE 12; VT/PRESS 400
[2017-07-19] MEDS ORDERED: NOREPINEPHRINE BITARTRATE 4,000 MCG in DEXTROSE 5%-WATER - 496 ML IV SCH (07:15)
--- NOTE | 2017-07-19 09:58 | PN ---
Progress Note (short form) - Note Progress Note: Patient seen and examined in the ICU. Events from overnight noted. Intubated and sedated. Pigtail intact. AC Mode of vent, 60% FiO2. 10 mcq NE for hemodynamic support. CXR: Resolved Right PTX Intake & Output 07/16/17 07/17/17 07/18/17 07/19/17 23:59 23:59 23:59 23:59 Intake Total 2600 1797 Output Total 0 450 20 Balance 2600 1347 -20 Weight 120 lb 95 lb 8 oz 95 lb 8 oz 104 lb 8 oz Last Vital Signs Temp Pulse Resp BP Pulse Ox 96.7 F L 76 28 H 84/50 96 07/19/17 06:00 07/19/17 06:00 07/19/17 09:30 07/19/17 06:00 07/18/17 06:35 Active Medications Famotidine/Sodium Chloride (Pepcid 20 Mg Premixed Ivpb -) 20 mg in 50 mls @ 100 mls/hr IVPB Q48H CALVIN Last Admin: 07/19/17 00:52 Dose: 100 mls/hr Dextrose/Sodium Chloride (D5-1/2ns -) 1,000 mls @ 75 mls/hr IV ASDIR CALVIN Last Admin: 07/18/17 13:00 Dose: 75 mls/hr Propofol (Diprivan -) 1,000,000 mcg in 100 mls @ 1.3 mls/hr IVPUSH TITR CALVIN; 5 MCG/KG/MIN PRN Reason: Protocol Last Admin: 07/18/17 15:30 Dose: 5 mcg/kg/min, 1.3 mls/hr Norepinephrine Bitartrate 4, (000 mcg/ Dextrose) 500 mls @ 75 mls/hr IV TITR CALVIN; 10 MCG/MIN PRN Reason: Protocol Last Admin: 07/19/17 03:30 Dose: 4.66 mcg/min, 34.95 mls/hr Insulin Aspart (Novolog Vial Sliding Scale -) 1 vial SQ Q6H CALVIN PRN Reason: Protocol Last Admin: 07/19/17 06:56 Dose: Not Given Gen: poorly responsive, Intubated Heart: RRR Lung: Bilateral rhonchi, Right pigtail Abd: soft, nontender Ext: no edema Laboratory Results - last 24 hr 07/16/17 07/17/1717 18:10 09:20 05:10 WBC RBC Hgb Hct MCV MCH MCHC RDW Plt Count MPV Total Counted 100 Neutrophils % Neutrophils % (Manual) 77.0 Band Neutrophils % 7.0 Lymphocytes % Lymphocytes % (Manual) 7.0 L Monocytes % Monocytes % (Manual) 2 L Eosinophils % Basophils % Basophils % (Manual) 1.0 Metamyelocytes 6 H Platelet Estimate Adequate Puncture Site ABG pH ABG pCO2 at Pt Temp ABG pO2 at Pt Temp ABG HCO3 ABG O2 Sat (Measured) ABG O2 Content ABG Base Excess Willie Test O2 Delivery Device Oxygen Flow Rate Vent Mode Vent Rate Mechanical Rate PEEP Pressure Support Vent Sodium Potassium Chloride Carbon Dioxide Anion Gap BUN Creatinine Creat Clearance w eGFR Random Glucose Hemoglobin A1c % Calcium Iron TIBC Iron Saturation Total Bilirubin AST ALT Alkaline Phosphatase Creatine Kinase Creatine Kinase Index CK-MB (CK-2) Troponin I Total Protein Albumin Urine Osmolality 489 Blood Type B NEGATIVE Antibody Screen Negative Crossmatch See Detail Spec Expiration Date 07/18/17 07/18/17 07/19/17 05:10 05:10 04:40 WBC RBC Hgb Hct MCV MCH MCHC RDW Plt Count MPV Total Counted Neutrophils % Neutrophils % (Manual) Band Neutrophils % Lymphocytes % Lymphocytes % (Manual) Monocytes % Monocytes % (Manual) Eosinophils % Basophils % Basophils % (Manual) Metamyelocytes Platelet Estimate Puncture Site Right brachial ABG pH 7.25 L ABG pCO2 at Pt Temp 39.2 D ABG pO2 at Pt Temp 48.8 L* D ABG HCO3 16.7 L ABG O2 Sat (Measured) 77.9 L ABG O2 Content 7.5 L* ABG Base Excess -9.2 L Willie Test Positive O2 Delivery Device Mech vent Oxygen Flow Rate 100% Vent Mode A/c Vent Rate 12 Mechanical Rate Yes PEEP 10.0 Pressure Support Vent 400 Sodium Potassium Chloride Carbon Dioxide Anion Gap BUN Creatinine Creat Clearance w eGFR Random Glucose Hemoglobin A1c % 5.6 Calcium Iron 51 TIBC 214 L Iron Saturation 24 Total Bilirubin AST ALT Alkaline Phosphatase Creatine Kinase Creatine Kinase Index CK-MB (CK-2) Troponin I Total Protein Albumin Urine Osmolality Blood Type Antibody Screen Crossmatch Spec Expiration Date 07/19/17 07/19/17 07/19/17 04:45 04:45 06:35 WBC 6.8 RBC 2.87 L Hgb 6.9 L* Hct 22.4 L MCV 77.9 L MCH 24.1 L MCHC 30.9 L RDW 19.6 H Plt Count 69 L D MPV 9.0 Total Counted Neutrophils % 91.3 H Neutrophils % (Manual) Band Neutrophils % Lymphocytes % 5.3 L D Lymphocytes % (Manual) Monocytes % 3.2 L Monocytes % (Manual) Eosinophils % 0.1 D Basophils % 0.1 Basophils % (Manual) Metamyelocytes Platelet Estimate Puncture Site Right radial ABG pH 7.26 L ABG pCO2 at Pt Temp 35.4 ABG pO2 at Pt Temp 191.0 H* D ABG HCO3 15.4 L ABG O2 Sat (Measured) 99.4 H ABG O2 Content 10.8 L ABG Base Excess -10.3 L* Willie Test Positive O2 Delivery Device Mech vent Oxygen Flow Rate 60% Vent Mode A/c Vent Rate 12 Mechanical Rate Yes PEEP 10.0 Pressure Support Vent 400 Sodium 165 H* Potassium 4.0 Chloride 128 H D Carbon Dioxide 19 L Anion Gap 18 H BUN 55 H D Creatinine 3.9 H D Creat Clearance w eGFR 11.04 Random Glucose 25 L* D Hemoglobin A1c % Calcium 7.1 L Iron TIBC Iron Saturation Total Bilirubin 1.1 H D AST 295 H D ALT 93 H D Alkaline Phosphatase 78 Creatine Kinase 1050 H Creatine Kinase Index 1.2 CK-MB (CK-2) 13.303 H Troponin I 0.73 H* Total Protein 6.1 L Albumin 1.6 L D Urine Osmolality Blood Type Antibody Screen Crossmatch Spec Expiration Date ASSESSMENT AND PLAN: Acute/Subacute CVA Severe Hypernatremia Acute on Chronic Renal Failure Altered Mental Status HTN Seizure disorder DM h/o colon ca Anemia AC Mode of vent Monitor CXR ECHO Strict I&O Check C Diff Flagyl Rectal tube HD per Renal IVF Normal transfusion thresholds Follow ABG Follow CXR Dr Krishnamurthy Critical care time spent in reviewing chart, evaluating patient and formulating plan 35 min
--- NOTE | 2017-07-19 10:07 | PN ---
Progress Note, Physician Chief Complaint: Acute kidney injury History of Present Illness: The patient seen in ICU. Events of last night noted. Patient intubated, vent supported, poorly responsive, hypotensive, On massive doses of Levophed, oliguric, Anemic. PRBC transfusion in progress. PigTail catheter in place. Daughter by her bed. - Current Medication List Current Medications: Active Medications Famotidine/Sodium Chloride (Pepcid 20 Mg Premixed Ivpb -) 20 mg in 50 mls @ 100 mls/hr IVPB Q48H CALVIN Last Admin: 07/19/17 00:52 Dose: 100 mls/hr Dextrose/Sodium Chloride (D5-1/2ns -) 1,000 mls @ 75 mls/hr IV ASDIR CALVIN Last Admin: 07/18/17 13:00 Dose: 75 mls/hr Propofol (Diprivan -) 1,000,000 mcg in 100 mls @ 1.3 mls/hr IVPUSH TITR CALVIN; 5 MCG/KG/MIN PRN Reason: Protocol Last Admin: 07/18/17 15:30 Dose: 5 mcg/kg/min, 1.3 mls/hr Norepinephrine Bitartrate 4, (000 mcg/ Dextrose) 500 mls @ 75 mls/hr IV TITR CALVIN; 10 MCG/MIN PRN Reason: Protocol Last Admin: 07/19/17 03:30 Dose: 4.66 mcg/min, 34.95 mls/hr Insulin Aspart (Novolog Vial Sliding Scale -) 1 vial SQ Q6H CALVIN PRN Reason: Protocol Last Admin: 07/19/17 06:56 Dose: Not Given - Objective Vital Signs: Vital Signs Temperature 96.7 F L 07/19/17 06:00 Pulse Rate 76 07/19/17 06:00 Respiratory Rate 28 H 07/19/17 09:30 Blood Pressure 84/50 07/19/17 06:00 O2 Sat by Pulse Oximetry (%) 96 07/18/17 06:35 Constitutional: Yes: Pallor Neck: Yes: Decreased ROM Cardiovascular: Yes: S1, S2 Respiratory: Yes: Diminished, Mechanically Ventilated, Poor Air Entry Gastrointestinal: Yes: Hypoactive Bowel Sounds, Melena Genitourinary: Yes: Oliguria Neurological: Yes: Unresponsive Labs: CBC, BMP 07/19/17 04:45 07/19/17 04:45 INR, PTT INR 1.29 (0.82-1.09) H 07/16/17 18:10 Problem List - Problems (1) Cardiac arrest Code(s): I46.9 - CARDIAC ARREST, CAUSE UNSPECIFIED (2) Pneumothorax Code(s): J93.9 - PNEUMOTHORAX, UNSPECIFIED (3) Shock Code(s): R57.9 - SHOCK, UNSPECIFIED (4) Anemia Code(s): D64.9 - ANEMIA, UNSPECIFIED (5) ARF (acute renal failure) Code(s): N17.9 - ACUTE KIDNEY FAILURE, UNSPECIFIED Qualifiers: Acute renal failure type: unspecified Qualified Code(s): N17.9 - Acute kidney failure, unspecified (6) CVA (cerebral vascular accident) Code(s): I63.9 - CEREBRAL INFARCTION, UNSPECIFIED Qualifiers: CVA mechanism: occlusion Precerebral and cerebral artery: basilar artery Qualified Code(s): I63.22 - 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 She was found to have multiple metabolic abnormalities and a CT head showing multiple infarcts of varying age. The patient had been dialyzed for Acute Kidney Injury, profound Hypernatremia, and the last HD was yesterday. A high Sodium bath was used to prevent sudden drop in Serum Sodium, and thereby prevent Neurological complications. Discussed in detail with the patient's daughter about the futility of further aggressive treatments. The patient is hemodynamically too unstable to try another HD today. The patient gas multiple on going acute and grave problems, and her chance of recovery is extremely unlikely. The family will decide on further treatments today...whether to be aggressive. Prognosis Grave. Thank you. More Brock MD
[2017-07-19] MEDS: DEXTROSE 5%-0.45% SALINE 1,000 ML IV SCH (11:25)
--- NOTE | 2017-07-19 11:50 | PN ---
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 As per house staff the acute weakness occurred 3 days prior to admission and then the patient became progressively non-functional, lethargic and hasn't been taking adequate food or drink. She is in hospital bed, now wearing O2 mask and unresponsive. - Current Medication List Current Medications: Active Medications Famotidine/Sodium Chloride (Pepcid 20 Mg Premixed Ivpb -) 20 mg in 50 mls @ 100 mls/hr IVPB Q48H CALVIN Last Admin: 07/19/17 00:52 Dose: 100 mls/hr Dextrose/Sodium Chloride (D5-1/2ns -) 1,000 mls @ 75 mls/hr IV ASDIR CALVIN Last Admin: 07/18/17 13:00 Dose: 75 mls/hr Propofol (Diprivan -) 1,000,000 mcg in 100 mls @ 1.3 mls/hr IVPUSH TITR CALVIN; 5 MCG/KG/MIN PRN Reason: Protocol Last Admin: 07/18/17 15:30 Dose: 5 mcg/kg/min, 1.3 mls/hr Norepinephrine Bitartrate 4, (000 mcg/ Dextrose) 500 mls @ 75 mls/hr IV TITR CALVIN; 10 MCG/MIN PRN Reason: Protocol Last Admin: 07/19/17 03:30 Dose: 4.66 mcg/min, 34.95 mls/hr Insulin Aspart (Novolog Vial Sliding Scale -) 1 vial SQ Q6H CALVIN PRN Reason: Protocol Last Admin: 07/19/17 06:56 Dose: Not Given - Objective Vital Signs: Vital Signs Temperature 96.7 F L 07/19/17 06:00 Pulse Rate 76 07/19/17 06:00 Respiratory Rate 28 H 07/19/17 09:30 Blood Pressure 84/50 07/19/17 06:00 O2 Sat by Pulse Oximetry (%) 96 07/18/17 06:35 Neurological: Yes: Unresponsive (SALVADOR, No dolls eyes, No movements to tactile or verbal stimulation) Labs: CBC, BMP 07/19/17 04:45 07/19/17 04:45 INR, PTT INR 1.29 (0.82-1.09) H 07/16/17 18:10 Problem List - Problems (1) ARF (acute renal failure) Code(s): N17.9 - ACUTE KIDNEY FAILURE, UNSPECIFIED Qualifiers: Acute renal failure type: unspecified Qualified Code(s): N17.9 - Acute kidney failure, unspecified (2) CVA (cerebral vascular accident) Code(s): I63.9 - CEREBRAL INFARCTION, UNSPECIFIED Qualifiers: CVA mechanism: occlusion Precerebral and cerebral artery: basilar artery Qualified Code(s): I63.22 - Cerebral infarction due to unspecified occlusion or stenosis of basilar artery (3) Dehydration Code(s): E86.0 - DEHYDRATION (4) Hypernatremia Code(s): E87.0 - HYPEROSMOLALITY AND HYPERNATREMIA Assessment/Plan Based on the history and imaging, she probably had a basal right basal ganglia stroke 3 days prior to admission. Since that time, she has not been able to care for herself, resulting in poor po intake and progression of her symptoms which is likely metabolic in nature. The nature of the lesion in the left parietal lobe is not clear, and when possible, MRI should be obtained to better understand what this represents whether it is encephalomalacea from an old insult or whether it represents a neoplasm. Unfortunately, contrast cannot be given due to her renal status, but the MRI should be able to at least help us distinguish some of these. Her metabolic status has not improved and she appears less responsive today. I'd recommend aspirin and statin for now, and if medically able repeat CT head. She has been hemodynamically unstable and in metabolically poor shape, so this may not be possible.
[2017-07-19] MEDS ORDERED: HEMOQUE TEST 1 EACH EACH ONE (12:33)
[2017-07-19 14:22] VITALS: TEMP 98
--- NOTE | 2017-07-19 21:51 | PN ---
Progress Note, Physician History of Present Illness: Pt seen at 6pm however note is being entered now - Current Medication List Current Medications: Active Medications Famotidine/Sodium Chloride (Pepcid 20 Mg Premixed Ivpb -) 20 mg in 50 mls @ 100 mls/hr IVPB Q48H CALVIN Last Admin: 07/19/17 00:52 Dose: 100 mls/hr Dextrose/Sodium Chloride (D5-1/2ns -) 1,000 mls @ 75 mls/hr IV ASDIR CALVIN Last Admin: 07/19/17 11:25 Dose: 75 mls/hr Propofol (Diprivan -) 1,000,000 mcg in 100 mls @ 1.3 mls/hr IVPUSH TITR CALVIN; 5 MCG/KG/MIN PRN Reason: Protocol Last Admin: 07/18/17 15:30 Dose: 5 mcg/kg/min, 1.3 mls/hr Norepinephrine Bitartrate 4, (000 mcg/ Dextrose) 500 mls @ 75 mls/hr IV TITR CALVIN; 10 MCG/MIN PRN Reason: Protocol Last Titration: 07/19/17 18:03 Dose: 20 mcg/min, 150 mls/hr Insulin Aspart (Novolog Vial Sliding Scale -) 1 vial SQ Q6H CALVIN PRN Reason: Protocol Last Admin: 07/19/17 17:56 Dose: Not Given - Objective Vital Signs: Vital Signs Temperature 98 F 07/19/17 14:00 Pulse Rate 94 H 07/19/17 21:29 Respiratory Rate 26 H 07/19/17 21:28 Blood Pressure 88/49 07/19/17 20:00 O2 Sat by Pulse Oximetry (%) 98 07/19/17 21:29 Labs: CBC, BMP 07/19/17 04:45 07/19/17 04:45 INR, PTT INR 1.29 (0.82-1.09) H 07/16/17 18:10 Problem List - Problems (1) ARF (acute renal failure) Code(s): N17.9 - ACUTE KIDNEY FAILURE, UNSPECIFIED Qualifiers: Acute renal failure type: unspecified Qualified Code(s): N17.9 - Acute kidney failure, unspecified (2) Altered mental status Code(s): R41.82 - ALTERED MENTAL STATUS, UNSPECIFIED (3) Anemia Code(s): D64.9 - ANEMIA, UNSPECIFIED (4) CVA (cerebral vascular accident) Code(s): I63.9 - CEREBRAL INFARCTION, UNSPECIFIED Qualifiers: CVA mechanism: occlusion Precerebral and cerebral artery: basilar artery Qualified Code(s): I63.22 - Cerebral infarction due to unspecified occlusion or stenosis of basilar artery (5) Diabetes Code(s): E11.9 - TYPE 2 DIABETES MELLITUS WITHOUT COMPLICATIONS (6) HTN (hypertension) Code(s): I10 - ESSENTIAL (PRIMARY) HYPERTENSION (7) Hypernatremia Code(s): E87.0 - HYPEROSMOLALITY AND HYPERNATREMIA (8) Respiratory failure Code(s): J96.90 - RESPIRATORY FAILURE, UNSP, UNSP W HYPOXIA OR HYPERCAPNIA
[2017-07-19 23:44] VITALS: BP 82/50; PULSE 76
[2017-07-19] MEDS: PROPOFOL 1,000,000 MCG/100 ML VIAL IVPUSH SCH (23:45)
== END 2017-07-19 23:47 | disposition expired | DRG 82 ==
LOC: JER 17:12 → JERBED 22:52 → JICU 07-17 01:58
PROVIDERS: ADMIT Internal Medicine; ATTEND Internal Medicine
PROC: 30233H1 Transfusion of Nonautologous Whole Blood into Peripheral Vein, Percutaneous Approach (ICD-10-PCS; principal; 2017-07-17)
PROC: 0CHY7BZ Insertion of Airway into Mouth and Throat, Via Natural or Artificial Opening (ICD-10-PCS; 2017-07-18)
PROC: 5A1945Z Respiratory Ventilation, 24-96 Consecutive Hours (ICD-10-PCS; 2017-07-18)
PROC: 06HY33Z Insertion of Infusion Device into Lower Vein, Percutaneous Approach (ICD-10-PCS; 2017-07-18)
PROC: 5A1D70Z Performance of Urinary Filtration, Intermittent, Less than 6 Hours Per Day (ICD-10-PCS; 2017-07-18)
PROC: 5A12012 Performance of Cardiac Output, Single, Manual (ICD-10-PCS; 2017-07-19)
PROC: 0W9930Z Drainage of Right Pleural Cavity with Drainage Device, Percutaneous Approach (ICD-10-PCS; 2017-07-19)
DX: S06.5X9A Traumatic subdural hemorrhage with loss of consciousness of unspecified duration, initial encounter (principal); I63.22 Cerebral infarction due to unspecified occlusion or stenosis of basilar artery; G93.41 Metabolic encephalopathy; J93.0 Spontaneous tension pneumothorax; G40.89 Other seizures; G81.94 Hemiplegia, unspecified affecting left nondominant side; I42.9 Cardiomyopathy, unspecified; E87.0 Hyperosmolality and hypernatremia; N17.9 Acute kidney failure, unspecified; M62.82 Rhabdomyolysis; E87.2 Acidosis; R47.01 Aphasia; E46 Unspecified protein-calorie malnutrition; R64 Cachexia; Z68.1 Body mass index [BMI] 19.9 or less, adult; S05.42XA Penetrating wound of orbit with or without foreign body, left eye, initial encounter; E11.22 Type 2 diabetes mellitus with diabetic chronic kidney disease; I12.9 Hypertensive chronic kidney disease with stage 1 through stage 4 chronic kidney disease, or unspecified chronic kidney disease; N18.9 Chronic kidney disease, unspecified; I46.9 Cardiac arrest, cause unspecified; R29.810 Facial weakness; F03.90 Unspecified dementia, unspecified severity, without behavioral disturbance, psychotic disturbance, mood disturbance, and anxiety; Z85.038 Personal history of other malignant neoplasm of large intestine; Z91.14 Patient's other noncompliance with medication regimen; D50.9 Iron deficiency anemia, unspecified; Z86.73 Personal history of transient ischemic attack (TIA), and cerebral infarction without residual deficits; Z74.01 Bed confinement status; W01.198A Fall on same level from slipping, tripping and stumbling with subsequent striking against other object, initial encounter; Z91.81 History of falling; Y93.89 Activity, other specified; Y92.89 Other specified places as the place of occurrence of the external cause; Y99.8 Other external cause status; E86.0 Dehydration; E87.5 Hyperkalemia; I89.0 Lymphedema, not elsewhere classified
CPT/HCPCS: 31500; 36415; 36430; 36600; 70450-TC; 70486-TC; 71010-TC; 72125-TC; 76775-TC; 80048; 80053; 80061; 80076; 81003; 81015; 82436; 82465; 82550; 82553; 82570; 82728; 82803; 83036; 83540; 83550; 83605; 83718; 83721; 83735; 83930; 83935; 84100; 84133; 84156; 84300; 84443; 84478; 84484; 84540; 85025; 85027; 85610; 86704; 86706; 86708; 86803; 86850; 86900; 86901; 86922; 87040; 87324; 87340; 87449; 93005; 93010; 93306-TC; 93880-TC; 94002; 99285-25; P9038; P9058